=== PATIENT | female | born 1985 | race Two or more races ===

== ENCOUNTER 2023-10-26 08:07 | Emergency (ER) | payer SELFPAY ==
[2023-10-26 08:13] VITALS: BP 107/47; PULSE 71; RESP 18; TEMP 37.1; O2SAT 100; BMI 37.8
--- NOTE | 2023-10-26 08:31 | US_ITS ---
The [address] [address] Patient Name: MARY GARDNER MRN: [id number] date: 1985 Sex: F Assigned Patient Location: ER Current Patient Location: ER Accession/Order Number: [id number] Exam Date: 10/26/2023 09:00 Report Date: 10/26/2023 09:49 At the request of: THANIA PHAN Procedure: US OB transvaginal EXAMINATION: US OB transvaginal HISTORY: Positive test with vaginal bleeding COMPARISON: No relevant comparison available. FINDINGS: GESTATIONAL SAC: Markedly irregular fluid collection/gestational sac within endometrial cavity. YOLK SAC: Absent POLE: Soft tissue structure within the endometrial fluid collection, 2.9 x 2.7 x 1.8 cm; possibly a pole. CARDIAC: Absent UTERUS: Normal size and appearance. OVARIES: Right: Corpus lutein cyst. Left: Normal. CERVIX: 3.8 cm in length and closed. CUL-DE-SAC: Normal. OTHER: None. AGE BY LMP: 19 weeks 6 days TERENCE BY LMP: 05/24/2024 AGE BY US CRL: 8 weeks 0 days TERENCE BY US CRL: 06/06/2024 US/US OB transvaginal IMPRESSION: 1. Markedly irregular fluid collection within endometrial cavity suspected represent a ruptured gestational sac. 2. Soft tissue structure within endometrial cavity; pole versus abnormal soft tissue. No heartbeat. 3. Findings consistent with impending . Electronically authenticated by: EVANGELIST MORALES Date: 10/26/2023 09:49
[2023-10-26 08:38] LABS: Bilirubin Urine NEGATIVE (NEGATIVE); Blood Urine MODERATE (NEGATIVE); Clarity Urine CLEAR (CLEAR); Color Urine YELLOW (YELLOW); Glucose Urine UA NEGATIVE (NEGATIVE); Ketones Urine NEGATIVE (NEGATIVE); Leukocyte Esterase Urine NEGATIVE (NEGATIVE); Nitrite Urine NEGATIVE (NEGATIVE); Protein Urine 30 mg/dL (NEG/TRACE); Urobilinogen Urine 0.2 EU/dL (0.2-1.0); pH Urine 6.5 (5.0-9.0)
--- NOTE | 2023-10-26 08:39 | ED_ITS ---
HPI - Abdominal Pain General Chief Complaint: Abdominal Pain Stated Complaint: ABDOMINAL PAIN Time Seen by Provider: 10/26/23 08:30 Source: patient and family History of Present Illness HPI narrative: This patient is here for evaluation of vaginal bleeding. She took a home test within the last week and it was positive. Her last menstrual period was the end of July. She has 6 children at home, her last delivery was 1 year ago. She has not seen a customer counter representative. In her pre this she has developed gestational diabetes but she has no other amount and is not on any medicines at the time. She has not had nausea vomiting or diarrhea. She has no urinary symptoms such as frequency urgency or dysuria. Related Data Home Medications Medication Instructions Recorded Confirmed No Known Home Medications 10/26/23 10/26/23 Allergies Allergy/AdvReac Type Severity Reaction Status Date / Time No Known Drug Allergies Allergy Verified 10/26/23 08:15 PFS PFS Social History Smoking status: Never smoker Exam Narrative Exam Narrative: Very pleasant 38-year-old no distress. Her vital signs are stable. We communicate very effectively, she understands some [place] and her daughter is an excellent flame burner. There was no communication problems. Here in the ER she did not pass any more clots. Her quantitative hCG is elevated as noted in her lab here. She was taken and had a transvaginal ultrasound. The results do not show any indication of an ectopic or tubal . There is no heartbeat detectable and there is the remnants of what appeared to be an earlier inside her uterus. She is Rh+ based on testing here. Constitutional Vital Signs, click to edit/add: Last Vital Signs Temp 98.7 F 10/26/23 08:13 Pulse 64 10/26/23 09:38 Resp 18 10/26/23 09:38 BP 118/75 10/26/23 09:38 Pulse Ox 98 10/26/23 09:38 Course Vital Signs Vital signs: Vital Signs Temperature 98.7 F 10/26/23 08:13 Pulse Rate 71 10/26/23 08:13 Respiratory Rate 18 10/26/23 08:13 Blood Pressure 107/47 L 10/26/23 08:13 Pulse Oximetry 100 10/26/23 08:13 Temperature 98.7 F 10/26/23 08:13 Pulse Rate 64 10/26/23 09:38 Respiratory Rate 18 10/26/23 09:38 Blood Pressure 118/75 10/26/23 09:38 Pulse Oximetry 98 10/26/23 09:38 MDM - Abdominal Pain MDM Narrative Medical decision making narrative: The findings today are consistent with a incomplete miscarriage. This was discussed with the patient. She is Rh+ so RhoGAM does not need to be given. It was explained to her if she has heavier bleeding or passing a large amount of clots she should return to consider D&C procedure. The daughter was able to explain this to the patient very comprehensively. Lab Data Labs: Lab Results 10/26/23 10/26/23 Range/Units 08:20 10:15 WBC 7.5 (4.0-11.0) 10^3/uL RBC 3.86 L (4.20-5.40) 10^6/uL Hgb 11.1 L (12.0-16.0) g/dL Hct 34.1 L (36.0-48.0) % MCV 88.3 (81.0-99.0) fL MCH 28.8 (26.7-34.0) pg MCHC 32.6 (29.9-35.2) g/dL RDW 15.7 H (11.0-15.0) % Plt Count 285 (150-450) 10^3/uL MPV 10.5 (9.5-13.5) fL Neut % (Auto) 65.9 (43.0-75.0) % Lymph % (Auto) 25.1 (20.5-60.0) % [place] % (Auto) 7.4 (1.7-12.0) % Eos % (Auto) 1.2 (0.9-7.0) % Baso % (Auto) 0.1 L (0.2-2.0) % Neut # (Auto) 4.9 (1.4-6.5) 10^3/uL Lymph # (Auto) 1.9 (1.2-3.8) 10^3/uL [place] # (Auto) 0.6 (0.3-0.8) 10^3/uL Eos # (Auto) 0.1 (0.0-0.7) 10^3/uL Baso # (Auto) 0.0 (0.0-0.1) 10^3/uL Abs Immat Gran (auto) 0.02 (0.00-0.03) 10^3/uL Imm/Tot Granulo (auto) 0.3 (0.0-0.5) % HCG, Quant [id number] mIU/mL Urine Color Yellow (YELLOW) Urine Clarity Clear (CLEAR) Urine pH 6.5 (5.0-9.0) Ur Specific [place] 1.020 (1.005-1.025) Urine Protein 30 A (NEG/TRACE) mg/dL Urine Glucose (UA) Negative (NEGATIVE) mg/dL Urine Ketones Negative (NEGATIVE) mg/dL Urine Occult Blood Moderate A (NEGATIVE) Urine Nitrite Negative (NEGATIVE) Urine Bilirubin Negative (NEGATIVE) Urine Urobilinogen 0.2 (0.2-1.0) EU/dL Ur Leukocyte Esterase Negative (NEGATIVE) Urine RBC 5-10 A (0-2) #/HPF Urine WBC None seen (NONE SEEN) #/HPF Ur Squamous Epith Cells Few A (NONE/RARE) #/LPF Urine Crystals None seen (None Seen) #/HPF Urine Bacteria Small A (NONE SEEN) #/HPF Urine Casts None seen (NONE SEEN) #/LPF Urine Mucus Trace A (NONE SEEN) Ur Culture Indicated? Yes Blood Type O Positive Discharge Plan Discharge Chief Complaint: Abdominal Pain Clinical Impression: Incomplete Patient Disposition: Home, Self-Care Time of Disposition Decision: 11:36 Prescriptions / Home Meds: No Action No Known Home Medications Additional Instructions: Follow-up with Dr. Gilmore her customer counter representative, return to the ER if you have heavy bleeding as discussed Referrals: Physician,Non-Staff, MD [Primary Care Provider] - 1 week Stand Alone Forms: Portal Instructions
[2023-10-26 08:43] LABS: Urine Microscopic Indicated YES
[2023-10-26 08:51] LABS: Bacteria Urine SMALL #/HPF (NONE SEEN); Mucus Urine TRACE (NONE SEEN); WBC Urine NONE SEEN #/HPF (NONE SEEN)
[2023-10-26 08:52] LABS: Cast Seen? NONE SEEN #/LPF (NONE SEEN); Crystals Seen? None Seen #/HPF (None Seen); Squamous Epithelial Cell Urine FEW #/LPF (NONE/RARE); Urine Culture Indicated YES
[2023-10-26 09:26] LABS: HCG Quantitative 165144 mIU/mL
[2023-10-26 09:38] VITALS: BP 118/75; PULSE 64; RESP 18; O2SAT 98
[2023-10-26 10:33] LABS: Basophils Percent Auto 0.1 % (0.2-2.0); Eosinophils Absolute Auto 0.1 10^3/uL (0.0-0.7); Eosinophils Percent Auto 1.2 % (0.9-7.0); Hematocrit 34.1 % (36.0-48.0); Hemoglobin 11.1 g/dL (12.0-16.0); Immature Granulocytes Abs Auto 0.02 10^3/uL (0.00-0.03); Immature Granulocytes Pct Auto 0.3 % (0.0-0.5); Lymphocytes Absolute Auto 1.9 10^3/uL (1.2-3.8); Lymphocytes Percent Auto 25.1 % (20.5-60.0); Mean Corpuscular HGB Conc 32.6 g/dL (29.9-35.2); Mean Corpuscular Hemoglobin 28.8 pg (26.7-34.0); Mean Corpuscular Volume 88.3 fL (81.0-99.0); Mean Platelet Volume 10.5 fL (9.5-13.5); Monocytes Absolute Auto 0.6 10^3/uL (0.3-0.8); Monocytes Percent Auto 7.4 % (1.7-12.0); Neutrophils Absolute Auto 4.9 10^3/uL (1.4-6.5); Neutrophils Percent Auto 65.9 % (43.0-75.0); Platelet Count 285 10^3/uL (150-450); Red Blood Count 3.86 10^6/uL (4.20-5.40); Red Cell Distribution Width 15.7 % (11.0-15.0); White Blood Count 7.5 10^3/uL (4.0-11.0)
== END 2023-10-26 12:00 | disposition home or self-care (01) ==
PROVIDERS: Emergency Provider Emergency Medicine Emergency Medical Services
DX: O03.4 Incomplete spontaneous abortion without complication (principal)
CPT/HCPCS: 36415; 76817; 80053; 81001; 83690; 84484; 84702; 84703; 85025; 86900; 86901; 87086; 99284

== ENCOUNTER 2023-10-28 08:15 | Day surgery (SDC) | payer SELFPAY ==
[2023-10-28] VITALS (16 sets, daily range): BP systolic 92–159; BP diastolic 49–90; PULSE 58–84; RESP 10–80; TEMP 36.2–37; O2SAT 99–100; BMI 37.4
--- NOTE | 2023-10-28 08:25 | US_ITS ---
The [address] [address] Patient Name: MARY GARDNER MRN: [id number] date: 1985 Sex: F Assigned Patient Location: ER Current Patient Location: ER Accession/Order Number: [id number] Exam Date: 10/28/2023 08:30 Report Date: 10/28/2023 09:48 At the request of: LILIBETH BARRY Procedure: US OB transvaginal EXAMINATION: US OB transvaginal HISTORY: , abd pain COMPARISON: 10/26/2023 FINDINGS: The uterus is stable in size and contour, anteverted. Heterogeneous fluid, hypoechoic and hyperechogenicity identified within the endometrial cavity which is distended up to 5.2 cm. Area of rounded hypoechogenicity measuring 3.2 x 2.4 x 2.5 cm. No pole or yolk sac is observed. The right ovary measures 3.6 x 3.6 x 2.6 cm. Normal color flow. The left ovary is not visualized No free fluid US/US OB transvaginal IMPRESSION: Stable thickened heterogeneous appearance of the endometrial cavity. The differential diagnosis would include products of conception and/or hemorrhage. Correlation with quantitative beta hCG is recommended Electronically authenticated by: RANDI DANIELS Date: 10/28/2023 09:48
--- NOTE | 2023-10-28 08:39 | ED.PREGNANC1 ---
HPI - General Chief complaint: Abdominal Pain Stated complaint: ABDOMINAL PAIN Time Seen by Provider: 10/28/23 08:24 Source: patient Mode of arrival: walk-in History of Present Illness HPI Narrative: Patient returns complaining of continued lower abdominal and pelvic pain. She also has some vaginal spotting. She did not take anything for the pain. The patient had a home test last week and then developed abdominal pain and spotting. She came to the ED two days ago. Quant was elevated at 165,144. US showed non viable fetus with gestational age different than estimated age based on LMP. Patient discharged home with recommendation to see her OB - Dr Gilmore - and to return if her symptoms continued or worsened. She is A1 - with this likely to be her second miscarriage. Related Data Home Medications Medication Instructions Recorded Confirmed No Known Home Medications 10/26/23 10/26/23 Previous Rx's Medication Instructions Recorded doxycycline hyclate 100 mg capsule 100 mg PO BID 7 days #14 caps 10/28/23 ibuprofen 800 mg tablet 800 mg PO Q8H PRN pain 14 days #40 10/28/23 tabs Allergies Allergy/AdvReac Type Severity Reaction Status Date / Time No Known Drug Allergies Allergy Verified 10/26/23 08:15 PFSH PFS Social History Smoking status: Never smoker Exam Narrative Exam Narrative: Nurses notes and vital signs reviewed and patient is not hypoxic. afebrile General: Well-appearing and in no apparent distress. Skin: Warm, dry, no pallor noted. No rash. Eye: Pupils are equal, round and EOMI. No scleral icterus. Ears, Nose, Mouth, and Throat: Oral mucosa is moist Cardiovascular: Regular Rate and Rhythm without murmur, gallop or rub. Respiratory: No accessory muscle use or respiratory distress. Lungs are clear to auscultation, no wheezing, rales or rhonchi Back: No midline thoracic or lumbar vertebral tenderness. No CVA tenderness. Some bilateral paraspinal soft tissue tenderness at lumbar region. Musculoskeletal: normal ROM, no calf or popliteal tenderness, no lower extremity edema/swelling GI: Abdomen is soft, non-distended. Normal bowel sounds. Suprapubic and adnexal tenderness to palpation. No rebound, guarding, or rigidity noted. Neurological: A&O x4. No cranial nerve dysfunction observed. No truncal ataxia. Moves all extremities. Sensation intact. Psychiatric: Cooperative and interactive. Normal mood and affect. Constitutional Vital Signs, click to edit/add: Last Vital Signs Temp 97.1 F L 10/28/23 11:37 Pulse 79 10/28/23 12:37 Resp 80 H 10/28/23 12:37 BP 99/78 10/28/23 12:37 Pulse Ox 99 10/28/23 12:37 O2 Del Method Room Air 10/28/23 12:37 Course Vital Signs Vital signs: Vital Signs Temperature 98.6 F 10/28/23 08:20 Pulse Rate 74 10/28/23 08:20 Respiratory Rate 18 10/28/23 08:20 Blood Pressure 159/90 H 10/28/23 08:20 Pulse Oximetry 100 10/28/23 08:20 Temperature 97.1 F L 10/28/23 11:37 Pulse Rate 79 10/28/23 12:37 Respiratory Rate 80 H 10/28/23 12:37 Blood Pressure 99/78 10/28/23 12:37 Pulse Oximetry 99 10/28/23 12:37 Oxygen Delivery Method Room Air 10/28/23 12:37 MDM - OB/Uterine Contractions MDM Narrative Medical decision making narrative: Patternmaker Helper used to talk with patient and during my exam, as well as during explanation of evaluation, workup and plan. Urine, blood and US obtained. Call placed to Dr Gilmore to discuss. He said that he is very familiar with this patient and aware of her condition. He will take the patient to the OR for D&C. Wants to be notified of US and lab results. quant = [phone]. CBC and CMP unremarkable. UA with blood. US reveals RPOC. Dr Gilmore notified. Patient will go to OR for D&C. Lab Data Attestation: I reviewed the patient's lab results. Labs: Lab Results 10/28/23 10/28/23 Range/Units 08:34 08:45 WBC 8.7 (4.0-11.0) 10^3/uL RBC 3.98 L (4.20-5.40) 10^6/uL Hgb 11.3 L (12.0-16.0) g/dL Hct 35.3 L (36.0-48.0) % MCV 88.7 (81.0-99.0) fL MCH 28.4 (26.7-34.0) pg MCHC 32.0 (29.9-35.2) g/dL RDW 15.6 H (11.0-15.0) % Plt Count 264 (150-450) 10^3/uL MPV 10.4 (9.5-13.5) fL Neut % (Auto) 63.4 (43.0-75.0) % Lymph % (Auto) 27.3 (20.5-60.0) % Avery % (Auto) 7.4 (1.7-12.0) % Eos % (Auto) 1.5 (0.9-7.0) % Baso % (Auto) 0.2 (0.2-2.0) % Neut # (Auto) 5.5 (1.4-6.5) 10^3/uL Lymph # (Auto) 2.4 (1.2-3.8) 10^3/uL Avery # (Auto) 0.7 (0.3-0.8) 10^3/uL Eos # (Auto) 0.1 (0.0-0.7) 10^3/uL Baso # (Auto) 0.0 (0.0-0.1) 10^3/uL Abs Immat Gran (auto) 0.02 (0.00-0.03) 10^3/uL Imm/Tot Granulo (auto) 0.2 (0.0-0.5) % PT 10.2 (9.0-11.6) sec INR 0.96 APTT 29.8 (22.3-36.2) sec Sodium 135 L (136-145) mmol/L Potassium 3.8 (3.5-5.1) mmol/L Chloride 103 (98-107) mmol/L Carbon Dioxide 23.7 (21.0-32.0) mmol/L Anion Gap 12.1 BUN 8.0 (7.0-18.0) mg/dL Creatinine 0.66 (0.55-1.02) mg/dL Est GFR ( Amer) >60 (>=60) Est GFR (Non-Af Amer) >60 (>=60) BUN/Creatinine Ratio 12.1 Glucose 100 (74-106) mg/dL Calcium 8.9 (8.5-10.1) mg/dL Total Bilirubin 0.4 (0.2-1.0) mg/dL AST 14 L (15-37) U/L ALT 16 (14-59) U/L Alkaline Phosphatase 80 (46-116) U/L Total Protein 7.9 (6.4-8.2) g/dL Albumin 3.1 L (3.4-5.0) g/dL Globulin 4.8 g/dL Albumin/Globulin Ratio 0.6 HCG, Quant [id number] mIU/mL Urine Color Yellow (YELLOW) Urine Clarity Clear (CLEAR) Urine pH 6.0 (5.0-9.0) Ur Specific Troy 1.025 (1.005-1.025) Urine Protein 30 A (NEG/TRACE) mg/dL Urine Glucose (UA) Negative (NEGATIVE) mg/dL Urine Ketones Negative (NEGATIVE) mg/dL Urine Occult Blood Large A (NEGATIVE) Urine Nitrite Negative (NEGATIVE) Urine Bilirubin Negative (NEGATIVE) Urine Urobilinogen 1.0 (0.2-1.0) EU/dL Ur Leukocyte Esterase Negative (NEGATIVE) Urine RBC 5-10 A (0-2) #/HPF Urine WBC 0-2 A (NONE SEEN) #/HPF Ur Squamous Epith Cells Few A (NONE/RARE) #/LPF Urine Crystals None seen (None Seen) #/HPF Urine Bacteria Trace A (NONE SEEN) #/HPF Urine Casts None seen (NONE SEEN) #/LPF Urine Mucus Trace A (NONE SEEN) Ur Culture Indicated? No Imaging Data pelvic US: Radiologist's impression: ITS Impressions Transvaginal US 10/28/23 08:25 IMPRESSION: Stable thickened heterogeneous appearance of the endometrial cavity. The differential diagnosis would include products of conception and/or hemorrhage. Correlation with quantitative beta hCG is recommended Electronically authenticated by: RANDI DANIELS Date: 10/28/2023 09:48 Discharge Plan Discharge Chief Complaint: Abdominal Pain Clinical Impression: Retained products of conception, Incomplete Patient Disposition: Home, Self-Care Time of Disposition Decision: 09:59 Condition: Good Discharge Date/Time: 10/28/23 13:13
--- OUTSIDE RECORDS SUMMARY | 2023-10-28 08:39 | XMS_ITS | CCD ---
Author Name Unknown Address [address] [facility] [address] [place] [address] Organization [facility] Care Team Providers Care Enterprise Project Manager Name Role Phone Unavailable Primary Care Provider JANAK Hatfield Primary Care Unavailable MARLEN AVILA Attending Unavailable NONE, XXXX Primary Care Physician UnavailYonathan Cavanaugh Attending Unavailable Hermelindo Monge Attending Unavailable Medications Current Medications Medication Drug Class(es) Dates Sig (Normalized) Sig (Original) acetaminophen 325 mg oral tablet (1 source) take 2 tablets by mouth every six hours as needed for pain acetaminophen (TYLENOL) 325 MG tablet Take 650 mg by mouth every 6 hours as needed for Pain 0 Active ibuprofen 600 mg oral tablet (3 sources) Nonsteroidal Anti-inflammatory Drug Start: 07-17-2021 take 1 tablet by mouth every six hours ibuprofen 600 mg Tab 600 mg = 1 tab(s), Oral, q6hr, # 15 tab(s), Refills(s) 0, Pharmacy: [id number], 154.9, cm, 07/16/21 19:31:00 EST, Height/Length Dosing, 109, kg, 07/16/21 19:31:00 EST, Weight Dosing Start Date: 07/17/21 Status: Ordered Start: 05-12-2016 take 1 tablet by gil th every eight hours as needed for pain ibuprofen (ADVIL;MOTRIN) 800 MG tablet Take 1 tablet by mouth every 8 hours as needed for Pain or Fever 50 tablet 2 05/12/2016 Active Multivitamins (2 sources) Start: 01-21-2021 take 1 tablet by mouth once daily Multivitamins 1 tab(s), Oral, Daily, Refill(s) 0 Start Date: 01/21/21 Status: Ordered Completed/Discontinued Medications Medication Drug Class(es) Dates Sig (Normalized) Sig (Original) calcium carbonate 1250 mg / cholecalciferol 200 unt oral tablet (1 source) Vitamin D Start: 08-29-2016 End: 05-05-2020 take 1 tablet by mouth once daily Calcium Carbonate-Vitamin D (OYSTER SHELL CALCIUM/D) 500-200 MG-UNIT TABS Take 1 tablet by mouth daily 30 tablet 5 08/29/2016 05/05/2020 Discontinued (LIST CLEANUP) 1 ml dexamethasone phosphate 10 mg/ml injection (1 source) Corticosteroid Start: 05-05-2020 End: 05-05-2020 dexamethasone (PF) (DECADRON) injection 10 mg 1 ml diphenhydrAMINE hydrochloride 50 mg/ml cartridge (1 source) Histamine-1 Receptor Antagonist Start: 05-05-2020 End: 05-05-2020 diphenhydrAMINE (BENADRYL) injection 12.5 mg ferrous sulfate 325 mg oral tablet (1 source) Start: 05-12-2016 End: 05-05-2020 take 1 tablet by mouth twice daily at mealtime ferrous sulfate 325 (65 FE) MG tablet Take 1 tablet by mouth 2 times daily (with meals) 60 tablet 3 05/12/2016 05/05/2020 Discontinued (LIST CLEANUP) 1 ml ketorolac tromethamine 30 mg/ml cartridge (1 source) Nonsteroidal Anti-inflammatory Drug, Cyclooxygenase Inhibitor Start: 05-05-2020 End: 05-05-2020 ketorolac (TORADOL) injection 30 mg 2 ml metoclopramide 5 mg/ml prefilled syringe (1 source) Dopamine-2 Receptor Antagonist Start: 05-05-2020 End: 05-05-2020 metoclopramide (REGLAN) injection 10 mg naproxen sodium 275 mg oral tablet (1 source) Nonsteroidal Anti-inflammatory Drug Start: 08-29-2016 End: 05-05-2020 take 1 tablet by mouth twice daily at mealtime naproxen sodium (ANAPROX) 275 MG tablet Indications: Pelvic congestion Take 1 tablet by mouth 2 times daily (with meals) 60 tablet 3 08/29/2016 05/05/2020 Discontinued (LIST CLEANUP) Problems Active Problems Problem Classification Problem Date Documented Date Episodic/Chronic Abdominal pain (1 source) Abdominal pain; Translations: [Unspecified abdominal pain] Onset: 10-22-2023 Episodic Diabetes or abnormal glucose tolerance complicating ; childbirth; or the puerperium (7 sources) Gestational diabetes mellitus; Translations: [Gestational diabetes] Onset: 02-03-2014 Resolved: 09-08-2014 09-08-2014 Episodic Headache; including migraine (1 source) Headache; Translations: [Nonintractable headache, unspecified chronicity pattern, unspecified headache type] Episodic Influenza (1 source) Influenza; Translations: [Influenza due to unidentified influenza virus with other respiratory manifestations] Onset: 09-29-2023 Episodic Malaise and fatigue (1 source) Asthenia; Translations: [General weakness] Episodic Other complications of ; puerperium affecting management of mother (2 sources) growth restriction 07-09-2021 Episodic Other complications of (2 sources) High risk 03-03-2021 Episodic Other complications of (1 source) Missed miscarriage; Translations: [Missed ] Onset: 10-22-2023 Episodic Other nutritional; endocrine; and metabolic disorders (3 sources) Body mass index 30+ - obesity; Translations: [Obesity (BMI 35.0-39.9 without comorbidity)] Onset: 02-03-2014 02-03-2014 Chronic Unclassified (1 source) Language spoken - finding; Translations: [Mauritanian speaking patient] Onset: 05-26-2014 05-26-2014 Unclassified (2 sources) Age mother conceived over 35 07-09-2021 Unclassified (2 sources) Language barrier (observable entity) 11-01-2013 Unclassified (2 sources) Sterilization requested 07-27-2020 Past or Other Problems Problem Classification Problem Date Documented Da te Episodic/Chronic Menstrual disorders (1 source) Amenorrhea; Translations: [Amenorrhea] Onset: 12-05-2013 Resolved: 12-31-2013 12-31-2013 Chronic Other complications of ; puerperium affecting management of mother (1 source) Labor problem; Translations: [Labor abnormal] Onset: 05-09-2016 Resolved: 06-27-2016 06-27-2016 Episodic Other and delivery including normal (2 sources) Delivery normal; Translations: [Normal labor] Onset: 07-20-2014 Resolved: 07-20-2014 05-10-2016 Episodic Unclassified (8 sources) Onset: 10-13-2013 Resolved: 07-17-2021 07-06-2020 Results Test Name Value Interpretation Reference Range Facility Chlam/GC/Trich,NAAon 03-06-2 024 C. trachomatis rRNA VIKY+probe Ql (Unsp spec) Negative Invalid Interpretation Code Negative [facility] Comment on above: Performed By: #### 1 [id number] ####[facility] [address] [place] [address] N. gonorrhoeae rRNA VIKY+probe Ql (Unsp spec) Negative Invalid Interpretation Code Negative [facility] Comment on above: Performed By: #### 1 [id number] ####[address] [address] T. vaginalis rRNA VIKY+probe Ql (Unsp spec) Negative Invalid Interpretation Code Negative [facility] Comment on above: Result Comment: Perf ormed at: =G [facility] [address] [place] [id number] MD Juanpablo Streeter Performed By: #### 1 [id number] ####[place] [id number] ABO/Rhon 10-22-2023 ABO/Rh Positive Invalid Interpretation Code [facility] Comment on above: Performed By: #### 2 [id number] ####[address] [address] Amylaseon 10-22-2023 Amylase [Catalytic activity/Vol] 54 U/L Normal 25-157 [facility] Comment on above: Performed By: #### 2 074527, 0988334, 8738092, 56940500, 2406675, 56984591, 0066298, 8561937, 6993547 ####[facility] [address] [place] [address] B hCG Qualon 10-22-2023 Beta HCG ( test) Ql Positive Normal [facility] Comment on above: Performed By: #### 2 370203, 7010961, 8948249, 48311419, 2351497, 72640860, 7608171, 5521076, 8781359 ####[place] [address] [place] [address] BLOOD BANKOrdered By: Janie Carter on 10-22-2023 ABO/Rh Interp Positive Invalid Interpretation Code [facility] BB Subsection BMPon 10-22-2023 Anion gap [Moles/Vol] 12 mmol/L Normal 6-16 [facility] Comment on above: Performed By: #### 2 767209, 0481018, 1701665, 77678491, 3950113, 17930600, 1783759, 0254810, 2404052 ####[facility] [address] [place] [address] Calcium [Mass/Vol] 9.2 mg/dL Normal 8.9-11.1 [facility] Comment on above: Performed By: #### 2 587657, 4545645, 8460114, 19413160, 9957949, 06264810, 0658854, 0232905, 9531167 ####[facility] [address] [place] [address] Chloride [Moles/Vol] 106 mmol/L Normal 101-111 [facility] Comment on above: Performed By: #### 2 503690, 4926130, 8775714, 98541986, 1686360, 80957882, 4545841, 8440334, 1005150 ####[facility] [address] [place] [address] CO2 [Moles/Vol] 22 mmol/L Normal 21-31 [facility] Comment on above: Performed By: #### 2 147873, 5496129, 3554416, 48811546, 3339967, 43124561, 3538362, 9629607, 3907702 ####[facility] [address] [place] [address] Creatinine [Mass/Vol] 0.6 mg/dL Normal 0.5-1.3 [facility] Comment on above: Performed By: #### 2 379517, 2016057, 9650134, 42484995, 1889341, 08795877, 5214290, 5981677, 0272851 ####[facility] [address] [place] [address] Glucose [Mass/Vol] 93 mg/dL Normal 55-199 [facility] Comment on above: Performed By: #### 2 279447, 9419980, 7259915, 75493790, 1464450, 77116486, 0316444, 0119994, 0676390 ####[facility] [address] [place] [address] Potassium [Moles/Vol] 4.3 mmol/L Normal 3.5-5.3 [facility] Comment on above: Performed By: #### 2 385089, 8793431, 3785929, 01306161, 0976352, 64660538, 2233382, 8827981, 9933380 ####[facility] [address] [place] [address] Sodium [Moles/Vol] 136 mmol/L Normal 135-145 [facility] Comment on above: Performed By: #### 2 854214, 1333002, 0400606, 43200308, 7898392, 19593434, 2375698, 9141933, 4833108 ####[facility] [address] [place] [address] Urea nitrogen [Mass/Vol] 8 mg/dL Normal 5-21 [facility] Comment on above: Performed By: #### 2 480363, 3100733, 6577113, 42185913, 8725579, 68277615, 6223425, 8718954, 2436775 ####[facility] [address] [place] [address] Urea nitrogen/Creatinine [Mass ratio] 13 No Units Normal 10-20 [facility] Comment on above: Performed By: #### 2 359387, 4591239, 0456661, 61769696, 5758635, 82049237, 0383318, 7409349, 3616702 ####[facility] [address] [place] [address] BhCG Quanton 10-22-2023 [place] [address] m[IU]/mL High 1-3 [facility] Comment on above: Result Comment: 'F N ON < 1 - 3' ' 0.2 - 1 WEEK = 5 TO 50' ' 1 - 2 WEEKS = 50 - 500' ' 2 - 3 WEEKS = 100 - 5000' ' 3 - 4 WEEKS = 500 - 98111' ' 4 - 5 WEEKS = 1000 - 44640' ' 5 - 6 WEEKS = 21143 - 442734' ' 6 - 8 WEEKS = 74132 - 388485' ' 8 - 12 WEEKS = 32702 - 642835' Performed By: #### 2 247007, 8672935, 3664343, 61074778, 9482820, 99403715, 2300828, 8265321, 8437243 ####[facility] [address] [place] [address] CBC w/ Auto Diffon 4 Basophils/100 WBC (Bld) 0.5 % Normal 0.0-2.0 [facility] Comment on above: Performed By: #### 2 317748, 8619920, 9521959, 78139400, 2037133, 45121283, 3667904, 5989933, 3706939 ####[facility] [address] [place] [address] Basophils/Leukocytes Auto (Bld) [Pure # fraction] 0.0 E9/L Normal 0.0-0.2 [facility] Comment on above: Performed By: #### 2 871417, 0479008, 0944778, 87059549, 3259581, 03728536, 8198936, 2970829, 3756413 ####[facility] [address] [place] [address] Eosinophils (Bld) [#/Vol] 0.1 E9/L Normal 0.0-0.5 [facility] Comment on above: Performed By: #### 2 617699, 4157746, 5519389, 28169636, 5103038, 67511323, 5651503, 4966874, 3289771 ####[facility] [address] [place] [address] Eosinophils/100 WBC (Bld) 1.2 % Normal 0.0-8.0 [facility] Comment on above: Performed By: #### 2 789109, 4977245, 2824060, 33203040, 1736310, 54682438, 1999405, 7260074, 5411134 ####[address] [address] Erythrocyte distribution width (RBC) [Ratio] 16.4 % High 10.9-14.2 [facility] Comment on above: Performed By: #### 2 801997, 1549403, 9996912, 39742370, 4218927, 09663918, 9847190, 3828792, 4783737 ####[address] [address] Hematocrit (Bld) [Volume fraction] 33.6 % Low 34.0-46.0 [facility] Comment on above: Performed By: #### 2 300016, 5531351, 3072376, 57070752, 8498187, 54043580, 4635775, 9123393, 0704976 ####[address] [address] Hemoglobin (Bld) [Mass/Vol] 11.1 g/dL Low 12.0-16.0 [facility] Comment on above: Performed By: #### 2 260943, 4847717, 2002918, 90014815, 7629317, 16331200, 0437399, 5893977, 5979025 ####[address] [address] Lymphocytes (Bld) [#/Vol] 1.8 E9/L Normal 1.0-4.0 [facility] Comment on above: Performed By: #### 2 769927, 7993670, 5754134, 26558438, 3491076, 67007342, 4943984, 0252439, 4554177 ####[address] [address] Lymphocytes/100 WBC (Bld) 26.3 % Normal 14.0-50.0 [facility] Comment on above: Performed By: #### 2 889007, 2796470, 6009473, 72869101, 0528524, 51209593, 5052614, 3939356, 1065115 ####[address] [address] MCH (RBC) [Entitic mass] 28.3 pg Normal 27.0-34.0 [facility] Comment on above: Performed By: #### 2 124102, 1799951, 8825193, 15095343, 9341737, 81117913, 6462644, 5209984, 4677049 ####[address] [address] MCHC (RBC) [Mass/Vol] 33.1 g/dL Normal 31.4-36.0 [facility] Comment on above: Performed By: #### 2 932332, 6473349, 2020061, 87677788, 9135029, 78840830, 7064047, 9444140, 3689153 ####[address] [address] MCV (RBC) [Entitic vol] 85.7 fL Normal 80.0-100.0 [facility] Comment on above: Performed By: #### 2 568694, 4242095, 0131244, 95341565, 9737775, 48969299, 8314339, 4258111, 4261162 ####[address] [address] Monocytes (Bld) [#/Vol] 0.5 E9/L Normal 0.2-1.0 [facility] Comment on above: Performed By: #### 2 013885, 9638199, 9697021, 48302177, 5369429, 52154434, 6078328, 9093539, 7218803 ####[address] [address] Neutrophils (Bld) [#/Vol] 4.4 E9/L Normal 2.0-7.5 [facility] Comment on above: Performed By: #### 2 358177, 5001018, 9563797, 19655723, 5638401, 08560183, 8614712, 3450362, 3417645 ####[place] [address] [place] [address] Neutrophils/100 WBC (Bld) 64.6 % Normal 36.0-75.0 [facility] Comment on above: Performed By: #### 2 811242, 6697733, 4308680, 17278586, 4038665, 52952055, 9488618, 1819693, 8445032 ####[address] [address] Platelet mean volume (Bld) [Entitic vol] 8.6 fL Normal 6.4-10.8 [facility] Comment on above: Performed By: #### 2 759696, 3831721, 3224093, 59610605, 6176928, 73964137, 2894263, 6716492, 2625304 ####[address] [address] Platelets (Bld) [#/Vol] 313.0 E9/L Normal 150.0-500.0 [facility] Comment on above: Performed By: #### 2 058599, 6376217, 9602233, 79616363, 0051593, 41593400, 3126225, 4815831, 7281056 ####[address] [address] RBC (Bld) [#/Vol] 3.9 E12/L Low 4.3-5.9 [facility] Comment on above: Performed By: #### 2 723786, 9577471, 7463616, 56978030, 6067908, 21680514, 3403686, 7477755, 1113161 ####[place] [address] [place] [address] WBC corrected for nucl RBC Auto (Bld) [#/Vol] 6.8 E9/L Normal 4.0-11.0 [facility] Comment on above: Performed By: #### 2 386971, 5846903, 4933006, 24217825, 8942943, 82947445, 4107189, 9055494, 4437959 ####[facility] [address] [place] [address] CHEMISTRYOrdered By: SYSTEM SYSTEM on 10-22-2023 Albumin [Mass/Vol] 3.6 g/dL Normal 3.3 - 5.0 gm/dL Remisol Chem Albumin/Globulin [Mass ratio] 1.0 {ratio} Low 1.1 - 2.2 [facility] ALP [Catalytic activity/Vol] 70 [iU]/d Normal 21 - 98 Int._Unit/L [facility] Chem ALT No additional P-5'-P [Catalytic activity/Vol] 8 [iU]/d Normal 6 - 46 Int._Unit/L [facility] Amylase [Catalytic activity/Vol] 54 U/L Normal 25 - 157 unit/L [facility] Anion gap [Moles/Vol] 12 mmol/L Normal 6 - 16 mEq/L R emisol Chem AST [Catalytic activity/Vol] 10 [iU]/d Normal 5 - 43 Int._Unit/L [facility] Bilirubin [Mass/Vol] 0.3 mg/dL Normal 0.0 - 1 .1 mg/dL [facility] Bilirubin.direct [Mass/Vol] 0.0 mg/dL Normal 0.0 - 0.4 mg/dL [facility] Bilirubin.indirect [Mass or moles/Vol] 0.3 mg/dL Normal 0.1 - 0.9 mg/dL [facility] Calcium [Mass/Vol] 9.2 mg/dL Normal 8.9 - 11. 1 mg/dL [facility] Chloride [Moles/Vol] 106 mmol/L Normal 101 - 1 11 mmol/L [facility] CO2 [Moles/Vol] 22 mmol/L Normal 21 - 31 mmol/L [facility] Creatinine [Mass/Vol] 0.6 mg/dL Normal 0.5 - 1.3 mg/dL [facility] CRP [Mass/Vol] 1.7 mg/dL Normal <=1.9mg/dL Rem[facility] Ch em eGFR 116 mL/min/1.73 m2 Normal >=59mL/mi n/1. 73 m2 [facility] Globulin (S) [Mass/Vol] 3.5 g/dL Normal 1.4 - 4.0 gm/dL [facility] Glucose [Mass/Vol] 93 mg/dL Normal 55 - 199 mg/dL [place] [address] m[IU]/mL High 1 - 3 mIU/mL [facility] Comment on above: Result Comment: 'F N ON < 1 - 3' ' 0.2 - 1 WEEK = 5 TO 50' ' 1 - 2 WEEKS = 50 - 500' ' 2 - 3 WEEKS = 100 - 5000' ' 3 - 4 WEEKS = 500 - 51833' ' 4 - 5 WEEKS = 1000 - 42069' ' 5 - 6 WEEKS = [address] - 613043' ' 6 - 8 WEEKS = 47455 - 515053' ' 8 - 12 WEEKS = 14116 - 289196' Lipase [Catalytic activity/Vol] 10 U/L Low 13 - 58 unit/L [facility] Potassium [Moles/Vol] 4.3 mmol/L Normal 3.5 - 5.3 mmol/L [facility] Protein [Mass/Vol] 7.1 g/dL Normal 6.0 - 7.8 gm/dL [facility] Sodium [Moles/Vol] 136 mmol/L Normal 135 - 145 mmol/L [facility] Urea nitrogen [Mass/Vol] 8 mg/dL Normal 5 - 21 mg/dL [facility] Urea nitrogen/Creatinine [Mass ratio] 13 mg/mg Normal 10 - 20 [facility] CRPon 10-22-2023 CRP [Mass/Vol] 1.7 mg/dL Normal <=1.9 [facility] Comment on above: Performed By: #### 2 368648, 1596986, 7973024, 94648794, 7916918, 98245615, 9420535, 4784635, 4351607 ####[facility] [address] [place] [address] Consent for Treatmenton Consent for Treatment [id number]#1.00TIFF Normal [facility] Discharge Instructionson Discharge Instructions [id number]#1.00TIFF Normal [facility] ED Clinical Summaryon 2023 ED Clinical Summary [address] [address] ED Clinical Summary Person Information Name: MARY RODRIGUEZ [place] Age: 38 Years : 1985 Sex: Female Language: Citizen Of [place] PCP: NONE, XXXX Marital Status: Single Visit Id: Visit Reason: Vaginal bleeding - < 20 wks ; Nausea; Abdominal pain; RT SIDE ABD PAIN, CHILLS, VAGINAL DISCHARGE Speciality: Acuity: 3 Enc Type: Emergency Med Service: Emergency Arrival: 10/22/2023 08:59:28 Discharge: 10/22/2023 16:09:45 LOS: 000 07:10 Checkin: 10/22/2023 08:59:28 Checkout: 10/22/2023 16:09:45 Dispo Type: Home (Routine DC) EVENTS: Event Name Event Status Request Date/Time Start Date/Time Complete Date/Time Arrive Complete 10/22/2023 08:59:28 10/22/2023 08:59:28 10/22/2023 08:59:28 Document Home Meds Request 10/22/2023 08:59:28 Triage Complete 10/22/2023 08:59:28 10/22/2023 09:11:53 10/22/2023 09:11:53 Bed Assign Complete 10/22/2023 09:03:02 10/22/2023 09:03:02 10/22/2023 09:03:02 Dr Exam Complete 10/22/2023 09:03:02 10/22/2023 09:26:33 10/22/2023 09:26:33 RN Exam Complete 10/22/2023 09:03:02 10/22/2023 09:19:17 10/22/2023 09:19:17 Registration Complete 10/22/2023 09:26:33 10/22/2023 09:28:32 10/22/2023 09:28:32 Reg Complete Request 10/22/2023 09:28:32 Reg Bed Request Complete 10/22/2023 09:28:32 10/22/2023 09:28:32 10/22/2023 09:28:32 Pending Labs Complete 10/22/2023 09:52:35 10/22/2023 14:12:57 Blood Collect Request 10/22/2023 09:52:35 Lab Complete 10/22/2023 09:52:35 10/22/2023 14:12:57 Urine Collect Complete 10/22/2023 09:52:35 10/22/2023 11:47:08 Pending Labs Complete 10/22/2023 10:10:50 10/22/2023 10:10:50 10/22/2023 10:58:21 Lab Complete 10/22/2023 10:10:50 10/22/2023 10:10:50 10/22/2023 10:58:21 Pending Labs Complete 10/22/2023 10:24:12 10/22/2023 10:24:12 10/22/2023 10:24:13 Pending Labs Cancel 10/22/2023 12:02:25 10/22/2023 12:23:31 Lab Cancel 10/22/2023 12:02:25 10/22/2023 12:23:31 US Complete 10/22/2023 12:02:25 10/22/2023 14:15:31 10/22/2023 15:07:48 Pending Labs Complete 10/22/2023 12:23:34 10/22/2023 12:23:34 10/22/2023 14:02:48 Lab Complete 10/22/2023 12:23:34 10/22/2023 12:23:34 10/22/2023 14:02:48 US Complete 10/22/2023 14:29:22 10/22/2023 14:29:34 10/22/2023 15:04:35 Pending Labs Collected 10/22/2023 15:43:39 Lab Inlab 10/22/2023 15:43:39 Discharge Complete 10/22/2023 15:52:42 10/22/2023 16:09:51 10/22/2023 16:09:51 Transfer Complete 10/22/2023 16:09:51 10/22/2023 16:09:51 10/22/2023 16:09:51 ADDRESS: [address] [place] [place] [id number] PHYS DOC NOTES: MEDICAL INFORMATION: Prescriptions Given: Medications to Continue with No Changes Other Medications ibuprofen (ibuprofen 600 mg Tab) 1 Tablets By Mouth every 6 hours. Refills: 0. multivitamin, ( Multivitamins) 1 Tablets By Mouth every day. PATIENT EDUCATION INFORMATION: Instructions: Miscarriage, Sibw-xn-Huax(Spanis h) Follow up: With: Address: [facility]: [facility] [address] [place] [address] [place] [address] Business (1) Comments: Call the office tomorrow for an appointment either Monday or Monday of this week. DIAGNOSIS: Missed ; Right flank pain Normal [facility] ED Note-Physicianon 10-22-19 ED Note-Physician Basic Information Time Seen: Hermelindo Monge MD 10/22/2023 09:26 Chief Complaint Pt states that shes having pain on her right starting a week ago, with chills. Pt states that she took a test yesterday and the test was positive. LMP was in july. Vaginal bleeding started last week. History of Present Illness 38-year-old female presents with complaint of right flank pain that is been there for the past several days. Pain is aggravated mostly by moving from a laying to a sitting position. Pain does not radiate to the abdomen. There has been some slight nausea with this. There is been no vomiting. She she denies any cough or shortness of breath. She states her periods have been irregular for some time. Her last normal period was in July. She states that she has had vaginal bleeding this past 1 week. Is not been heavy. She has had 6 previous pregnancies. There were no problems with those pregnancies. She does state that she had a positive test at home last week. She denies any dysuria with this. Patient has had no previous abdominal surgery. She does not require anything for pain at this time. Review of Systems A 10 point review of systems is negative except as noted above. Medical and Surgical History: Reviewed and noted Social history: Lives at home Tobacco: Denies Physical Exam Vitals & Measurements T: 36.6 ?C(Oral) HR: 66(Monitored) RR: 16 BP: 131/65 SpO2: 100% HT: 152 cm WT: 92.4 kg BMI: 39.99 This is a overweight 38-year-old female she is alert and oriented skin is warm and dry color is pink on room air. The heart is regular not accelerated there is no murmur gallop or rub. Lungs are clear there is good air entry there are no adventitious sounds. Skin shows no rashes. There is some tenderness in the right flank and right CVA region. The abdomen itself is soft and nontender. Unable to push deeply everywhere on the abdomen I do not feel any enlarged uterus or mass. Bowel sounds are active. When the patient returned from ultrasound we did perform a pelvic exam. The cervix does appear to be cyanotic. There is a mild ectropion of the cervical mucosa. There is no active bleeding or tissue. The cervix is closed. The cervix does feel parous. The cervix is nontender to movement and palpation. The uterus appears to be rounded about 10 cm in diameter but it is nontender. I do not detect any adnexal masses or tenderness. Medical Decision Making Patient's quantitative test was 90,000. Ultrasound was performed and it showed material unorganized in the cavity of the uterus. There was no gestational sac there was no evidence of a fetus. They did not detect any adnexal masses. They did scan the right kidney no definite evidence of hydronephrosis with this kidney. We will discussed the case with our MULTIPLEX OPERATOR on-call, Dr. Gilmore. He does want to see the patient in his office no later than Monday of this week. He anticipates a repeat ultrasound in 1 week. He feels that if this was an ectopic with a beta-hCG of 90,000 it would have manifested itself by now. He is suspicious for a missed . Patient is Rh+. Assessment/Plan Missed (O02.1: Missed ) Right flank pain (R10.9: Unspecified abdominal pain) Orders: ABO/Rh Amylase Level Basic Metabolic Panel Beta hCG Qual Beta hCG Quantitative C-Reactive Protein CBC w/ Auto Diff Cervical Culture Chlam/GC/Trich,VIKY eGFR Extra Blue Tube Hepatic Function Panel Lipase Level UA With Cult Reflex US 1st Trimester US Transvaginal US Renal Disposition Plan Patient Discharge Condition Stable Discharge Disposition Home Discharge Prescription List Prescriptions No active prescription medications Follow-up With When Contact Information Mango GARRIDOO [address] [place] [address]- Business (1) Additional Instructions: Call the office tomorrow for an appointment either Monday or Monday of this week. Patient Education Miscarriage, Nfmi-sx-Lesp Problem List/Past Medical History Ongoing Encounter for supervision of high risk in third trimester, antepartum Language barrier Request for sterilization Historical Gestational diabetes Procedure/Surgical History Dilatation and curettage (07/08/2020), Dilatation and curettage, None. Medications Inpatient No active inpatient medications Home ibuprofen 600 mg Tab, 600 mg= 1 tab(s), Oral, q6hr Multivitamins, 1 tab(s), Oral, Daily Allergies No Known Allergies Social History Alcohol - Denies Alcohol Use, 12/07/2011 DENIES, 09/08/2020 Employment/School - Not employed or in school, 12/07/2011 Home/Environment Lives with Significant other. Living situation: Home/Independent., 12/07/2011 Substance Abuse - Denies Substance Abuse, 12/07/2011 DENIES, 09/08/2020 Tobacco - Denies Tobacco Use, 12/07/2011 Never (less than 100 (more content not included)... Normal [facility] Comment on above: Result Comment: Elec tronically Signed By: Saleem FLOWERS, Hermelindo\.br\Date and Time Signed: 10/22/23 15:57 EST ED Patient Education Noteon 10-22-2023 ED Patient Education Note Obstetrics and Gynecology Aborto espont?santa Miscarriage El aborto espont?santa es la p?rdida de un embarazo antes de la semana?20. A veces, el embarazo termina antes de que la patrica sepa que est? embarazada. Si pierde un embarazo, hable con wilcox m?dico sobre: ? Las preguntas que tenga sobre la p?rdida del beb?. ? C?mo atravesar el duelo. ? Planes para un futuro embarazo. ?Cu?les son las causas? Muchas veces, se desconoce la causa de esta afecci?n. ?Qu? incrementa el riesgo? Estas cosas pueden hacer que leonardo embarazada sea m?s propensa a perder un embarazo: Ciertos problemas m?dicos ? Trastornos que afectan las hormonas, esa los siguientes: ? Enfermedad tiroidea. ? S?ndrome del ovario poliqu?stico. ? Diabetes. ? Leonardo enfermedad que provoca que el sistema del cuerpo que combate las enfermedades se ataque a s? mismo por error. ? Infecciones. ? Problemas de sangrado. ? Tener mucho sobrepeso. Factores de estilo de bernard ? Consumir productos que contienen nicotina o tabaco. ? Estar cerca de humo de tabaco. ? Beber alcohol. ? Consumir serge cafe?na. ? Consumir drogas. Problemas relacionados con las partes o los ?rganos genitales ? Sufrir la apertura y el borrado del cleveland uterino antes de la fecha estimada de parto. El cleveland uterino es la parte m?s baja del ?tero. ? Tener s?ndrome de Asherman, que deriva en: ? Cicatrices en el ?tero. ? Forma anormal del ?tero. ? Tumores (fibromas) en el ?tero. ? Problemas en el cuerpo que est?n presentes desde el nacimiento. ? Infecci?n en el cleveland uterino o el ?tero. Antecedentes personales o de spencer ? Lesiones. ? Deirdre perdido un embarazo antes. ? Ser sarah de 18?a?os o mayor de 35?a?os de edad. ? Estar cerca de leonardo sustancia nociva, esa la radiaci?n. ? Que haya plomo u otros metales pesados en: ? Cosas que come o modesto. ? El aire que la rodea. ? Nicole ciertos medicamentos. ?Cu?les son los signos o s?ntomas? ? Jourdan o manchas de jourdan procedentes de la vagina. Tambi?n puede tener c?licos o dolor. ? Dolor o c?licos en la arthur o en la parte baja de la espalda. ? [place] de l?quido o tejido por la vagina. ?C?mo se trata? A veces, el tratamiento no es necesario. Si necesita tratamiento, es posible que se la trate con: ? Un procedimiento para abrir m?s el cleveland uterino y sacar tejido del ?tero. ? Medicamentos. Tj vez le den leonardo inyecci?n de un medicamento llamado inmunoglobulina Jose A(D). Siga estas instrucciones en wilcox casa: Medicamentos ? Use los medicamentos de venta michael y los recetados solamente esa se lo haya indicado el m?dico. ? Si le recetaron un antibi?gita, t?graham esa se lo haya indicado el m?dico. No deje de tomarlo aunque comience a sentirse mejor. Actividad ? Perri reposo esa se lo haya indicado el m?dico. Preg?ntele al m?dico qu? actividades son seguras para usted. ? Pida ayuda para realizar las tareas de la casa delmy charlee tiempo. Instrucciones generales ? Observe cu?nto tejido sale de la vagina. ? Observe el demarco?o de cualquier co?gulo de jourdan que salga de la vagina. ? No tenga relaciones sexuales ni se perri duchas vaginales hasta que el m?dico la autorice. ? No se ponga cosas, esa tampones, en la vagina hasta que el m?dico la autorice. ? Para ayudarlos a usted y a wilcox tiffanie con el duelo: ? Hable con el m?dico. ? Vaya al psic?logo. ? Cuando est? lista, hable con el m?dico sobre: ? Las cosas que puede hacer por wilcox spencer. ? C?mo puede estar harrison si queda embarazada de nuevo. ? Cumpla con todas las visitas de seguimiento. D?nde buscar m?s informaci?n ? The [place] [employer] ([employer] Ob[employer] y Ginec?logos): acog.org ? U.S. Department of Health and Human Services, Office on Women?s Health (Departamento de Spencer y Servicios Humanos de los [place]idos, Oficina de Spencer de la Patrica): hrsa.gov/office-wom ens-health Comun?quese con un m?dico si: ? Tiene fiebre o escalofr?os. ? Le sale l?quido con mal olor de la vagina. ? Aumenta el sangrado. ? Le salen co?gulos de jourdan o tejido de la vagina. Solicite ayuda de inmediato si: ? Tiene espasmos o dolor muy intensos en el abdomen o en la espalda. ? Llena m?s de 2?ap?sitos sanitarios grandes en leonardo hora delmy m?s de 2?horas. ? Se siente d?shaji o mareada. ? Se desmaya. ? Se siente alexandr y tiene pensamientos tristes gran parte del tiempo. ? Piensa en hacerse da?o. Busque ayuda de inmediatosi alguna vez siente que puede hacerse da?o a usted misma o a otros, o tiene pensamientos de poner fin a wilcox bernard. Dir?alysia al centro de urgencias m?s cercano o: ? Comun?quese con el servicio de emergencias de wilcox localidad (911 en los [place]). ? Llame a National Suicide Prevention Lifeline (L?chelsie Telef?danica Nacional para la Prevenci?n del Suicidio) al . Est? disponible las 24 horas del d?a. ? Env?e un mensaje de texto a la l?chelsie para casos de crisis (more content not included)... Normal [facility] ED Patient Summaryon 024 ED Patient Summary [address] [address] Patient Discharge Instructions Person Information Name: MARY RODRIGUEZ Age: 38 Years Arrival Date: 10/22/2023 08:59:28 Discharge Diagnosis: Missed ; Right flank pain Primary Care Physician: NONE, XXXX Provider Information Primary Provider: Hermelindo Monge MD Advanced Sql Dba:None The exam and treatment you received in the Emergency Department were for an urgent problem and are not intended as complete care. It is important that you follow up with a doctor, nurse practitioner, or physician?s medical lab assistant for ongoing care. If your symptoms become worse or you do not improve as expected and you are unable to reach your usual health care provider, you should return to the Emergency Department. We are available 24 hours a day. MARY RODRIGUEZ has been given the following list of patient education materials, prescriptions and follow-up instructions: Follow-up Instructions: With: Address: When: Mango GILMORE [facility], [address] [place] [address] [place] [address] Business (1) Comments: Call the office tomorrow for an appointment either Monday or Monday of this week. In the event that this physician does not participate in your insurance network, please consult with your insurance company to find a nearby participating provider. Patient Education Materials: Miscarriage, Jvok-rs-Ounh(Spanis h) A MESSAGE TO ALL PATIENTS REGARDING OPIOIDS PRESCRIPTION OPIOIDS: WHAT YOU NEED TO KNOW Prescription opioids can be used to help relieve gulixnwr-qe-qeogcx pain and are often prescribed following a surgery or injury, or for certain health conditions. These medications can be an important part of the treatment but also come with serious risks. It is important to work with your healthcare provider to make sure you are getting the safest, most effective care. WHAT ARE THE RISKS AND SIDE EFFECTS OF OPIOID USE? Prescription opioids carry serious risks of addiction and overdose, especially with prolonged use. An opioid overdose, often marked by slowed breathing, can cause sudden . The use of prescription opioids can have a number of side effects as well, even when taken as directed: ? Tolerance?meaning you might need to take more of the medication for the same pain relief ? Physical dependence?meaning you have symptoms of withdrawal when a medication is stopped ? Increased sensitivity to pain ? Constipation ? Nausea, vomiting, and dry mouth ? Sleepiness and dizziness ? Confusion ? Depression ? Low levels of testosterone that can result in lower sex drive, energy, and strength ? Itching and sweating RISKS ARE GREATER WITH: ? History of drug misuse, substance use disorder, or overdose ? Mental health conditions (such as depression or anxiety) ? Sleep apnea ? Older age (65 years and older) ? Avoid alcohol while taking prescription opioids. Also, unless specifically advised by your health care provider, medications to avoid include: ? Benzodiazepines (such as Xanax or Valium) ? Muscle relaxants (such as Soma or Flexeril) ? Hypnotics (such as Ambien or Lunesta) ? Other prescription opioids KNOW YOUR OPTIONS Talk to your health care provider about ways to manage your pain that don?t involve prescription opioids. Some of these options may actually work better and have fewer risks and side effects. Options may include: ? Pain relievers such as acetaminophen, ibuprofen, and naproxen ? Some medication that are also used for depression or seizures ? Physical therapy and exercise ? Cognitive behavioral therapy, a psychological, goal-directed approach, in which patients learn how to modify physical, behavioral, and emotional triggers of pain and stress. IF YOU ARE PRESCRIBED OPIOIDS FOR PAIN: ? Never take opioids in greater amounts or more often than prescribed. ? Follow up with your primary health care provider. o Work together to create a plan on how to manage your pain. o Talk about ways to help manage your pain that don?t involve prescription opioids. o Talk about any and all concerns and side effects. ? Help prevent misuse and abuse o Never sell or share prescription opioids. o Never use another person?s prescription opioids. ? Store prescription opioids in a secure place and out of reach of others (this may include visitors, children, friends, and family). ? Safely dispose of unused prescription opioids: Find your community drug take-back program or your pharmacy mail-back program, or flush them down the toilet, following guidance from the Food and Drug Administration (www.fda.gov/Drugs/ ResourcesForYou). ? Visit www.cdc.gov/drugove rdose to learn about the risks of opioids abuse and overdose. ? If you believe you may be struggling with addiction, tell your health car (more content not included)... Normal [facility] HEMATOLOGYOrdered By: SYSTEM SYSTEM on 10-22-2023 Basophils/100 WBC (Bld) 0.5 % Normal 0.0 - 2.0 % Remisol Heme Basophils/Leukocytes Auto (Bld) [Pure # fraction] 0.0 E9/L Normal 0.0 - 0.2 E9/L Remisol Heme Eosinophils (Bld) [#/Vol] 0.1 E9/L Normal 0.0 - 0.5 E9/L Remisol Heme Eosinophils/100 WBC (Bld) 1.2 % Normal 0.0 - 8.0 % Remisol Heme Erythrocyte distribution width (RBC) [Ratio] 16.4 % High 10.9 - 14.2 % Remisol Heme Hematocrit (Bld) [Volume fraction] 33.6 % Low 34.0 - 46.0 % Remisol Heme Hemoglobin (Bld) [Mass/Vol] 11.1 g/dL Low 12.0 - 16.0 gm/dL Remisol Heme Lymphocytes (Bld) [#/Vol] 1.8 E9/L Normal 1.0 - 4.0 E9/L Remisol Heme Lymphocytes/100 WBC (Bld) 26.3 % Normal 14.0 - 50.0 % Remisol Heme MCH (RBC) [Entitic mass] 28.3 pg Normal 27.0 - 34.0 pg Remisol Heme MCHC (RBC) [Mass/Vol] 33.1 g/dL Normal 31.4 - 36.0 gm/dL Remisol Heme MCV (RBC) [Entitic vol] 85.7 fL Normal 80.0 - 100.0 fL Remisol Heme Monocytes (Bld) [#/Vol] 0.5 E9/L Normal 0.2 - 1.0 E9/L Remisol Heme Monocytes/100 WBC (Bld) 7.4 % Normal 4.0 - 14.0 % Remisol Heme Neutrophils (Bld) [#/Vol] 4.4 E9/L Normal 2.0 - 7.5 E9/L Remisol Heme Neutrophils/100 WBC (Bld) 64.6 % Normal 36.0 - 75.0 % Remisol Heme Platelet mean volume (Bld) [Entitic vol] 8.6 fL Normal 6.4 - 10.8 fL Remisol Heme Platelets (Bld) [#/Vol] 313.0 E9/L Normal 150.0 - 500.0 E9/L Remisol Heme RBC (Bld) [#/Vol] 3.9 E12/L Low 4.3 - 5.9 E12/L Remisol Heme WBC corrected for nucl RBC Auto (Bld) [#/Vol] 6.8 E9/L Normal 4.0 - 11.0 E9/L Remisol Heme Hep Func Panelon 10-22-2023 Albumin [Mass/Vol] 3.6 g/dL Normal 3.3-5.0 [facility] Comment on above: Performed By: #### 2 [id number], 5224950, 6818717, 45970493, 6874724, 67682507, 9341946, 4943635, 6433977 ####[facility] [address] [place] [address] Albumin/Globulin (S) [Mass conc ratio] 1.0 Low 1.1-2.2 [facility] Comment on above: Performed By: #### 2 688117, 9683054, 8360962, 99098990, 6299071, 92301374, 3013848, 1047563, 0342652 ####[facility] [address] [place] [address] ALP [Catalytic activity/Vol] 70 Int._Unit/L Normal 21-98 [facility] Comment on above: Performed By: #### 2 980788, 7663242, 9342741, 35974703, 2538144, 96756914, 1983428, 2318408, 8120702 ####[place] [place] [address] ALT No additional P-5'-P [Catalytic activity/Vol] 8 Int._Unit/L Normal 6-46 [facility] Comment on above: Performed By: #### 2 986316, 4840615, 4470807, 60747489, 6437607, 93831749, 0671375, 8761736, 2669174 ####[address] [place] [address]3057 AST [Catalytic activity/Vol] 10 Int._Unit/L Normal 5-43 [facility] Comment on above: Performed By: #### 2 889218, 5671513, 9877776, 12252647, 6750770, 77630961, 4178246, 3599032, 8446386 ####[place] [address] Bilirubin [Mass/Vol] 0.3 mg/dL Normal 0.0-1.1 [facility] Comment on above: Performed By: #### 2 320835, 1008112, 4198470, 51762438, 8586413, 45732474, 0113440, 9704270, 0562754 ####[place] [address] Bilirubin.direct [Mass/Vol] 0.0 mg/dL Normal 0.0-0.4 [facility] Comment on above: Performed By: #### 2 411230, 0095361, 9676693, 95472428, 9220381, 96526263, 8596866, 6996489, 5041492 ####[address] [address] Bilirubin.indirect [Mass or moles/Vol] 0.3 mg/dL Normal 0.1-0.9 [facility] Comment on above: Performed By: #### 2 131963, 3056982, 8984176, 44303214, 9747707, 89286158, 4130672, 7989491, 8717357 ####[address] [place] [address] Globulin (S) [Mass/Vol] 3.5 g/dL Normal 1.4-4.0 [facility] Comment on above: Performed By: #### 2 628369, 9636529, 3490238, 98962762, 3675092, 85236540, 7886573, 5760109, 6860646 ####[facility] [address] [place] [address] Protein [Mass/Vol] 7.1 g/dL Normal 6.0-7.8 [facility] Comment on above: Performed By: #### 2 058405, 6887544, 1844684, 20532695, 1646159, 52677813, 2000880, 3011835, 2915716 ####[address] [address] Lipase Levelon 10-22-2023 Lipase [Catalytic activity/Vol] 10 U/L Low 13-58 [facility] Comment on above: Performed By: #### 2 252591, 0995911, 4251243, 56392738, 9278612, 88997613, 7910606, 8150405, 4012355 ####[address] [address] No Panel InformationOrdered By: Katie Salguero on 10-22-2023 WP No Trichomonas observed. No clue cells present [facility] SEROLOGYOrdered By: Victoria Lechuga on 10-22-2023 Beta HCG ( test) Ql Positive (10/22/23 10:02 AM) Normal [facility] Man Sero UA With Cult Reflexon 2023 Bacteria LM Ql (Urine sed) TRACE Normal Trace [facility] Comment on above: Performed By: #### 1 [id number] ####[facility] [address] [place] [address] Bilirubin Ql (U) Negative Normal Negative [facility] Comment on above: Performed By: #### 1 9161892 ####[facility] [address] [place] [address] Clarity (U) SL CLOUDY Invalid Interpretation Code [facility] Comment on above: Performed By: #### 1 9395216 ####[facility] [address] [place] [address] Color (U) YELLOW Normal Yellow [facility] Comment on above: Performed By: #### 1 4382532 ####[facility] [address] [place] [address] Epithelial cells.squamous LM.HPF (Urine sed) [#/Area] /[HPF] Normal 0-2 [facility] Comment on above: Performed By: #### 1 0751218 ####[address] [address] Glucose Test strip (U) [Mass/Vol] Negative Normal Negative [facility] Comment on above: Performed By: #### 1 8611749 ####[address] [address] Hemoglobin Ql (U) 2+ Abnormal Negative [facility] Comment on above: Performed By: #### 1 5950195 ####[facility] [address] [place] [address] Ketones (U) [Mass/Vol] Negative Normal Negative [facility] Comment on above: Performed By: #### 1 0599138 ####[address] [place] [address] [place].plasma/[place] .RBC (Bld) [Mass ratio] 4-20 Normal 0-3 [facility] Comment on above: Performed By: #### 1 7440915 ####[facility] [address] [place] [address] Mucus Ql (Urine sed) 1+ Normal Fish [facility] Comment on above: Performed By: #### 1 7061686 ####[facility] [address] [place] [address] Nitrite Ql (U) Negative Normal Negative [facility] Comment on above: Performed By: #### 1 8451957 ####[facility] [address] [place] [address] pH (U) 7.5 [pH] Invalid Interpretation Code 5.0-9.0 [facility] Comment on above: Performed By: #### 1 3219786 ####[place] [address] Protein (U) [Mass/Vol] Negative Normal Negative [facility] Comment on above: Performed By: #### 1 8533846 ####[place] [address] Specific gravity (U) [Rel density] 1.020 Invalid Interpretation Code 1.005-1.030 [facility] Comment on above: Performed By: #### 1 0758749 ####[place] [address] Type of Urine collection method Clean Catch Normal [facility] Comment on above: Performed By: #### 1 9117604 ####[place] [address] Urobilinogen Qn (U) 0.2 {Leslye'U}/dL Normal 0.0-1.0 [facility] Comment on above: Performed By: #### 1 4696912 ####[place] [address] WBC Auto Ql (U) TRACE Abnormal Negative [facility] Comment on above: Performed By: #### 1 7127149 ####[place] [address] WBC LM.HPF (Urine sed) [#/Area] 0-5 Normal 0-5 [facility] Comment on above: Performed By: #### 1 5818010 ####[place] [address] URINALYSISOrdered By: Cynthia Lechuga on 10-22-2023 Bacteria LM Ql (Urine sed) Trace /HPF Normal Trace/HPF [facility] UA Auto SS Bilirubin Ql (U) Negative (10/22/23 11:15 AM) Normal Negative [facility] UA Auto SS Clarity (U) SL CLOUDY Invalid Interpretation Code [facility] UA Auto SS Color (U) Yellow (10/22/23 11:15 AM) Normal Yellow [facility] UA Auto SS Epithelial cells.squamous LM.HPF (Urine sed) [#/Area] /[HPF] Normal 0-2/HPF [facility] UA Aut o SS Glucose Test strip (U) [Mass/Vol] Negative (10/22/23 11:15 AM) Normal Negative [facility] UA Auto SS Hemoglobin Ql (U) 2+ *ABN* (10/22/23 11:15 AM) Invalid Interpretation Code Negative [facility] UA Auto SS Ketones (U) [Mass/Vol] Negative (10/22/23 11:15 AM) Normal Negative [facility] UA Auto SS [place].plasma/[place] .RBC (Bld) [Mass ratio] 4-20 /HPF Normal 0-3/HPF [facility] UA Auto SS Mucus Ql (Urine sed) 1+ (10/22/23 11:15 AM) Normal [facility] UA Auto SS Nitrite Ql (U) Negative (10/22/23 11:15 AM) Normal Negative [facility] UA Auto SS pH (U) 7.5 *NA* (10/22/23 11:15 AM) Invalid Interpretation Code 5.0 - 9.0 [facility] UA Auto SS Protein (U) [Mass/Vol] Negative (10/22/23 11:15 AM) Normal Negative [facility] UA Auto SS Specific gravity (U) [Rel density] 1.020 *NA* (10/22/23 11:15 AM) Invalid Interpretation Code 1.005 - 1.030 [facility] UA Auto SS UA Spec Desc Clean Catch (10/22/23 11:15 AM) Normal [facility] UA Auto SS Urobilinogen Qn (U) 0.5020202 {Leslye'U}/dL Normal 0.0 - 1.0 EU/dL [facility] UA Auto SS WBC Auto Ql (U) Trace *ABN* (10/22/23 11:15 AM) Invalid Interpretation Code Negative [facility] UA Auto SS WBC LM.HPF (Urine sed) [#/Area] 0-5 /HPF Normal 0-5/HPF [facility] UA Auto SS US 1st Trimesteron 10-22-2023 US 1st Trimester Exam Date/Time: 10/22/2023 15:07 EST Reason for Exam: Threatened Miscarriage;Other (please specify) Report [facility] [phone] IMPRESSION: Irregularly shaped gestational sac, with no uterine identified. Mean sac diameter correlates to 6 weeks 5 days. Differential includes delayed intrauterine versus failed . Short-term follow-up pelvic sonography with beta hCG correlation recommended. CLINICAL HISTORY: Vaginal bleeding. Threatened miscarriage. Beta hCG 91,859. Findings: Transabdominal and transvaginal sonography was performed with transvaginal imaging obtained to better assess pelvic anatomy. The uterus measurements and an estimated volume are: Uterus Length: 11.7 cm Uterus Width: 8.5 cm Uterus Height: 6.3 cm Uterus Volume: 325.6 cm3 Endometrial canal measures 26 mm. Irregularly-shaped gestational sac is identified, with surrounding decidual reaction. Mean sac diameter measures 1.81 cm yielding estimated sonographic gestational age 6 weeks, 5 days. No pole and no yolk sac is identified. The right ovary measurements and estimated volume are: Right Ovary Length: 2.9 cm Right Ovary Width: 2.7 cm Right Ovary Height: 2.1 cm Right Ovary Volume: 8.4 cm3 Left ovary not visualized secondary to overlying bowel gas. No adnexal masses. No free fluid. Report Ordering Provider: Hermelindo Monge FINAL REPORT Dictated: 10/22/2023 3:39 pm Bryce Aguirre MD Signed (Electronic Signature): 10/22/2023 3:39 pm Signed by: Bryce Aguirre MD Transcribed by: FACUNDO Technologist: BLAINE Technical Comments LMP : 08/18/2023=[id number] Irregular History 7 Para 6 Transabdominal Ultrasound Performed Transvaginal Ultrasound Performed Normal [facility] US Transvaginalon 10-22-2023 US Transvaginal Exam Date/Time: 10/22/2023 15:04 EST Reason for Exam: vaginal bleeding Report [facility] [phone] Please review ultrasound , for report of ultrasound transvaginal. Ordering Provider: Hermelindo Monge FINAL REPORT Dictated: 10/22/2023 3:39 pm Bryce Aguirre MD Signed (Electronic Signature): 10/22/2023 3:39 pm Signed by: Bryce Aguirre MD Transcribed by: FACUNDO Technologist: BLAINE Normal [facility] US Renalon 10-22-2023 US Renal Exam Date/Time: 10/22/2023 15:03 EST Reason for Exam: Hematuria Report [facility] [phone] IMPRESSION: NEGATIVE ULTRASOUND OF THE KIDNEYS. CLINICAL HISTORY: Hematuria. COMPARISON: NONE. Findings: Right kidney measures 10.8 x 4.5 x 6.2 cm. Left kidney measures 11.2 x 5.4 x 5.0 cm. Both kidneys normal in size, shape, echogenicity, color flow. No calculi, hydronephrosis, cortical thinning, cystic/solid lesions identified. Ordering Provider: Hermelindo Monge FINAL REPORT Dictated: 10/22/2023 3:31 pm Bryce Aguirre MD Signed (Electronic Signature): 10/22/2023 3:31 pm Signed by: Bryce Aguirre MD Transcribed by: FACUNDO Technologist: BLAINE Garcia [facility] eGFRon 10-22-2023 eGFR 116 mL/min/1.73 m2 Normal >=59 [facility] Comment on above: Order Comment: Order added by Discern Expert. Performed By: #### 2 [id number] ####[facility] [address] [place] [address] Consent for Treatmenton Consent for Treatment [id number] Normal [facility] Discharge Instructionson Discharge Instructions [id number] Normal [facility] ED Clinical Summaryon 2023 ED Clinical Summary [address] [address] ED Clinical Summary Person Information Name: MARY RODRIGUEZ [facility] Age: 38 Years : 1985 Sex: Female Language: Citizen Of [place] PCP: NONE, XXXX Marital Status: Single Visit Id: Visit Reason: Sinus Pain/Congestion; Fever; HIGH FEVER, COUGH Speciality: Acuity: 4 Enc Type: Emergency Med Service: Emergency Arrival: 09/29/2023 19:29:13 Discharge: 09/29/2023 21:42:53 LOS: 000 02:13 Checkin: 09/29/2023 19:29:13 Checkout: 09/29/2023 21:42:53 Dispo Type: Home (Routine DC) EVENTS: Event Name Event Status Request Date/Time Start Date/Time Complete Date/Time Arrive Complete 09/29/2023 19:29:13 09/29/2023 19:29:13 09/29/2023 19:29:13 Document Home Meds Request 09/29/2023 19:29:13 Triage Complete 09/29/2023 19:29:13 09/29/2023 19:55:44 09/29/2023 19:55:44 Registration Complete 09/29/2023 19:33:49 09/29/2023 19:33:49 09/29/2023 19:33:49 Reg Complete Request 09/29/2023 19:33:49 Reg Bed Request Complete 09/29/2023 19:33:49 09/29/2023 19:33:49 09/29/2023 19:33:49 Pending Labs Complete 09/29/2023 19:46:16 09/29/2023 20:51:14 Lab Complete 09/29/2023 19:46:16 09/29/2023 20:51:14 Swab Complete 09/29/2023 19:46:16 09/29/2023 20:51:14 Bed Assign Complete 09/29/2023 20:52:00 09/29/2023 20:52:00 09/29/2023 20:52:00 Dr Exam Complete 09/29/2023 20:52:00 09/29/2023 21:08:20 09/29/2023 21:08:20 RN Exam Complete 09/29/2023 20:52:00 09/29/2023 21:14:49 09/29/2023 21:14:49 Registration Request 09/29/2023 21:08:20 Discharge Complete 09/29/2023 21:31:51 09/29/2023 21:42:59 09/29/2023 21:42:59 Transfer Complete 09/29/2023 21:42:59 09/29/2023 21:42:59 09/29/2023 21:42:59 ADDRESS: [address] [facility] [id number] PHYS DOC NOTES: MEDICAL INFORMATION: Prescriptions Given: Medications to Continue with No Changes Other Medications ibuprofen (ibuprofen 600 mg Tab) 1 Tablets By Mouth every 6 hours. Refills: 0. multivitamin, ( Multivitamins) 1 Tablets By Mouth every day. PATIENT EDUCATION INFORMATION: Instructions: Influenza, Adult Follow up: With: Address: When: [facility], [address] [place] [address] [address], [place] [address] Business (1) In 3 days 10/02/2023 DIAGNOSIS: Influenza Normal [facility] ED Note-Physicianon 09-29-19 ED Note-Physician Basic Information Time Seen: Yonathan Melchor DO 09/29/2023 21:08 Chief Complaint pt arrives for c/o fever,cold like symptoms since . pt took ibuprophen at 1400 today History of Present Illness HPI: Patient is a 38-year-old female who presents with her 2-year-old family member who also has symptoms for cough, fever, chills. Patient states this for started a day and a half ago and has progressively worsened. She states that she does have some bodyaches with this. She does feel slightly short of breath. She denies any nausea vomiting or diarrhea. She denies any chest pain or palpitations. She last took a dose of ibuprofen at 1400 today. ROS: Pertinent review of systems conducted and is negative except as noted above. Physical exam: General: nontoxic appearing and in no distress HEENT: Mucous membranes moist Neuro: awake and alert Neck: supple, trachea midline Card: Heart regular rate and rhythm no murmur Resp: Lungs clear to auscultation no wheeze or rhonchi Abd: Soft and nondistended. No tenderness to palpation with no rebound or guarding. Ext: No gross deformity or edema Physical Exam Vitals & Measurements T: 39 ?C(Oral) HR: 102(Peripheral) RR: 16 BP: 152/83 SpO2: 98% HT: 152 cm WT: 89.8 kg BMI: 38.87 Medical Decision Making MEDICAL DECISION MAKING Number and Complexity of Problems Differential Diagnosis: [] [facility] Data External documents reviewed: N/A My EKG interpretation: Noted in chart if applicable My CT interpretation: N/A My X-ray interpretation: Noted in chart if applicable My Ultrasound interpretation: N/A Decision rules/scores evaluated: N/A Discussed with: N/A Treatment and Disposition ED Course: Is nontoxic-appearing and in no distress. She has flulike symptoms so we will obtain COVID and influenza swabs. Patient is positive for influenza B. We discussed this diagnosis at bedside. We discussed the plan of discharge with continued oral hydration as well as Tylenol and Motrin as needed. She will follow-up with her primary care physician. Shared decision making: As above Code status: N/A Assessment/Plan Influenza (J11.1: Influenza due to unidentified influenza virus with other respiratory manifestations) Orders: Influenza A&B Ag Rapid COVID Antigen ([facility]) Disposition Plan Discharge Prescription List Prescriptions No active prescription medications Follow-up With When Contact Information AKUA MAKI In 3 days 10/02/[address], [place] [address] [facility] (1) Additional Instructions: Patient Education Influenza, Adult Problem List/Past Medical History Ongoing Encounter for supervision of high risk in third trimester, antepartum Language barrier Request for sterilization Historical Gestational diabetes Procedure/Surgical History Dilatation and curettage (07/08/2020), Dilatation and curettage, None. Medications Inpatient No active inpatient medications Home ibuprofen 600 mg Tab, 600 mg= 1 tab(s), Oral, q6hr Multivitamins, 1 tab(s), Oral, Daily Allergies No Known Allergies Social History Alcohol - Denies Alcohol Use, 12/07/2011 DENIES, 09/08/2020 Employment/School - Not employed or in school, 12/07/2011 Home/Environment Lives with Significant other. Living situation: Home/Independent., 12/07/2011 Substance Abuse - Denies Substance Abuse, 12/07/2011 DENIES, 09/08/2020 Tobacco - Denies Tobacco Use, 12/07/2011 Never (less than 100 in lifetime) Tobacco Use:. Never Smokeless Tobacco Use:., 09/08/2020 Lab Results Influenzae A Ag: NEGATIVE1 (09/29/23 20:10:00) Influenzae B Ag: Positive1 Abnormal (09/29/23 20:10:00) Rapid COVID Ag: Not Detected (09/29/23 20:10:00) Rapid COV Int NEG Ctl: Pass (09/29/23 20:10:00) Rapid COV Int POS Ctl: Pass (09/29/23 20:10:00) Diagnostic Results No qualifying data available. Normal [facility] Comment on above: Result Comment: Elec tronically Signed By: Yonathan Melchor DO\.br\Date and Time Signed: 09/29/23 21:33 EST ED Patient Education Noteon 09-29-2023 ED Patient Education Note Infectious Disease Influenza, Adult Influenza, also called the flu, is a viral infection that mainly affects the respiratory tract. This includes the lungs, nose, and throat. The flu spreads easily from person to person (is contagious). It causes common cold symptoms, along with high fever and body aches. What are the causes? This condition is caused by the influenza virus. You can get the virus by: ? Breathing in droplets that are in the air from an infected person's cough or sneeze. ? Touching something that has the virus on it (has been contaminated) and then touching your mouth, nose, or eyes. What increases the risk? The following factors may make you more likely to get the flu: ? Not washing or sanitizing your hands often. ? Having close contact with many people during cold and flu season. ? Touching your mouth, eyes, or nose without first washing or sanitizing your hands. ? Not getting an annual flu shot. You may have a higher risk for the flu, including serious problems, such as a lung infection (pneumonia), if you: ? Are older than 65. ? Are . ? Have a weakened disease-fighting system (immune system). This includes people who have HIV or AIDS, are on chemotherapy, or are taking medicines that reduce (suppress) the immune system. ? Have a long-term (chronic) illness, such as heart disease, kidney disease, diabetes, or lung disease. ? Have a liver disorder. ? Are severely overweight (morbidly obese). ? Have anemia. ? Have asthma. What are the signs or symptoms? Symptoms of this condition usually begin suddenly and last 4?14 days. These may include: ? Fever and chills. ? Headaches, body aches, or muscle aches. ? Sore throat. ? Cough. ? Runny or stuffy (congested) nose. ? Chest discomfort. ? Poor appetite. ? Weakness or fatigue. ? Dizziness. ? Nausea or vomiting. How is this diagnosed? This condition may be diagnosed based on: ? Your symptoms and medical history. ? A physical exam. ? Swabbing your nose or throat and testing the fluid for the influenza virus. How is this treated? If the flu is diagnosed early, you can be treated with antiviral medicine that is given by mouth (orally) or through an IV. This can help reduce how severe the illness is and how long it lasts. Taking care of yourself at home can help relieve symptoms. Your health care provider may recommend: ? Taking xrjv-ltb-xwpvyoh medicines. ? Drinking plenty of fluids. In many cases, the flu goes away on its own. If you have severe symptoms or complications, you may be treated in a hospital. Follow these instructions at home: Activity ? Rest as needed and get plenty of sleep. ? Stay home from work or school as told by your health care provider. Unless you are visiting your health care provider, avoid leaving home until your fever has been gone for 24 hours without taking medicine. Eating and drinking ? Take an oral rehydration solution (ORS). This is a drink that is sold at pharmacies and retail stores. ? Drink enough fluid to keep your urine pale yellow. ? Drink clear fluids in small amounts as you are able. Clear fluids include water, ice chips, fruit juice mixed with water, and low-calorie sports drinks. ? Eat bland, mlcp-fq-evdxqa foods in small amounts as you are able. These foods include bananas, applesauce, rice, lean meats, toast, and crackers. ? Avoid drinking fluids that contain a lot of sugar or caffeine, such as energy drinks, regular sports drinks, and soda. ? Avoid alcohol. ? Avoid spicy or fatty foods. General instructions ? Take ynyw-fcn-xlgcjvm and prescription medicines only as told by your health care provider. ? Use a cool mist humidifier to add humidity to the air in your home. This can make it easier to breathe. ? When using a cool mist humidifier, clean it daily. Empty the water and replace it with clean water. ? Cover your mouth and nose when you cough or sneeze. ? Wash your hands with soap and water often and for at least 20 seconds, especially after you cough or sneeze. If soap and water are not available, use alcohol-based hand head of measurement & insights. ? Keep all follow-up visits. This is important. How is this prevented? ? Get an annual flu shot. This is usually available in late summer, fall, or winter. Ask your health care provider when you should get your flu shot. ? Avoid contact with people who are sick during cold and flu season. This is generally fall and winter. Contact a health care provider if: ? You develop new symptoms. ? You have: ? Chest pain. ? Diarrhea. ? A fever. ? Your cough gets worse. ? You produce more mucus. ? You feel nauseous or you vomit. Get help right away if you: ? Develop shortness of breath or have difficulty breathing. ? Have skin or nails that turn a bluish color. ? Have severe pain or stiffness in your neck. ? Deve (more content not included)... Normal [facility] ED Patient Summaryon 024 ED Patient Summary [place] [address] Patient Discharge Instructions Person Information Name: RODRIGUEZ MARY Cabrera Age: 38 Years Arrival Date: 09/29/2023 19:29:13 Discharge Diagnosis: Influenza Primary Care Physician: NONE, XXXX Provider Information Primary Provider: Yonathan Melchor DO Advanced Sql Dba:None The exam and treatment you received in the Emergency Department were for an urgent problem and are not intended as complete care. It is important that you follow up with a doctor, nurse practitioner, or physician?s medical lab assistant for ongoing care. If your symptoms become worse or you do not improve as expected and you are unable to reach your usual health care provider, you should return to the Emergency Department. We are available 24 hours a day. MARY RODRIGUEZ has been given the following list of patient education materials, prescriptions and follow-up instructions: Follow-up Instructions: With: Address: When: [facility], [address] [place] [address] Business (1) In 3 days 10/02/2023 In the event that this physician does not participate in your insurance network, please consult with your insurance company to find a nearby participating provider. Patient Education Materials: Influenza, Adult A MESSAGE TO ALL PATIENTS REGARDING OPIOIDS PRESCRIPTION OPIOIDS: WHAT YOU NEED TO KNOW Prescription opioids can be used to help relieve kbyjqqvm-cj-pymoks pain and are often prescribed following a surgery or injury, or for certain health conditions. These medications can be an important part of the treatment but also come with serious risks. It is important to work with your healthcare provider to make sure you are getting the safest, most effective care. WHAT ARE THE RISKS AND SIDE EFFECTS OF OPIOID USE? Prescription opioids carry serious risks of addiction and overdose, especially with prolonged use. An opioid overdose, often marked by slowed breathing, can cause sudden . The use of prescription opioids can have a number of side effects as well, even when taken as directed: ? Tolerance?meaning you might need to take more of the medication for the same pain relief ? Physical dependence?meaning you have symptoms of withdrawal when a medication is stopped ? Increased sensitivity to pain ? Constipation ? Nausea, vomiting, and dry mouth ? Sleepiness and dizziness ? Confusion ? Depression ? Low levels of testosterone that can result in lower sex drive, energy, and strength ? Itching and sweating RISKS ARE GREATER WITH: ? History of drug misuse, substance use disorder, or overdose ? Mental health conditions (such as depression or anxiety) ? Sleep apnea ? Older age (65 years and older) ? Avoid alcohol while taking prescription opioids. Also, unless specifically advised by your health care provider, medications to avoid include: ? Benzodiazepines (such as Xanax or Valium) ? Muscle relaxants (such as Soma or Flexeril) ? Hypnotics (such as Ambien or Lunesta) ? Other prescription opioids KNOW YOUR OPTIONS Talk to your health care provider about ways to manage your pain that don?t involve prescription opioids. Some of these options may actually work better and have fewer risks and side effects. Options may include: ? Pain relievers such as acetaminophen, ibuprofen, and naproxen ? Some medication that are also used for depression or seizures ? Physical therapy and exercise ? Cognitive behavioral therapy, a psychological, goal-directed approach, in which patients learn how to modify physical, behavioral, and emotional triggers of pain and stress. IF YOU ARE PRESCRIBED OPIOIDS FOR PAIN: ? Never take opioids in greater amounts or more often than prescribed. ? Follow up with your primary health care provider. o Work together to create a plan on how to manage your pain. o Talk about ways to help manage your pain that don?t involve prescription opioids. o Talk about any and all concerns and side effects. ? Help prevent misuse and abuse o Never sell or share prescription opioids. o Never use another person?s prescription opioids. ? Store prescription opioids in a secure place and out of reach of others (this may include visitors, children, friends, and family). ? Safely dispose of unused prescription opioids: Find your community drug take-back program or your pharmacy mail-back program, or flush them down the toilet, following guidance from the Food and Drug Administration (www.fda.gov/Drugs/ ResourcesForYou). ? Visit www.cdc.gov/drugove rdose to learn about the risks of opioids abuse and overdose. ? If you believe you may be struggling with addiction, tell your health care professionals and ask for guidance or call [facility]?S National Helpline at 4-487-204-BOOB. c Source: Department of (more content not included)... Normal [facility] Influenza A&B Agon 4 Influenzae A Ag Negative Normal Negative [facility] Comment on above: Performed By: #### 1 [id number] ####[facility] [address] [place] [address] Influenzae B Ag Positive Abnormal Negative [facility] Comment on above: Result Comment: Test sensitivity and specificity vary for age group, specimen type, antigen types, and prevalence of disease. Test results must be evaluated in conjunction with other clinical data available to the physician. Individuals who received nasally administered Influenza A vaccine may have positive test results up to 3 days after vaccination. Performed By: #### 1 [id number], [id number] ####[facility] [address] [place] [address] MICRO OTHER TESTSOrdered By: Yang Ascencio on 09-29-2023 Influenzae A Ag Negative (09/29/23 8:10 PM) Normal Negative [facility] [address] Influenzae B Ag Positive 1 *ABN* (09/29/23 8:10 PM) Invalid Interpretation Code Negative [facility] Comment on above: Interpretive Data: T est sensitivity and specificity vary for age group, specimen type, antigen types, and prevalence of disease. Test results must be evaluated in conjunction with other clinical data available to the physician. Individuals who received nasally administered Influenza A vaccine may have positive test results up to 3 days after vaccination. Rapid COV Int NEG Ctl Pass (09/29/23 8:10 PM) Normal [facility] S[facility] Rapid COV Int POS Ctl Pass (09/29/23 8:10 PM) Normal [facility] SARS-CoV+SARS-CoV-2 (COVID-19) Ag IA.rapid Ql (Resp) Not Detected 2 (09/29/23 8:10 PM) Normal Not Detected [facility] Comment on above: Interpretive Data: T he [employer] Veritor System for Rapid Detection of SARS-CoV-2 is a chromatographic digital immunoassay intended for the direct and qualitative detection of SARS-CoV-2 nucleocapsid antigens in nasal swabs from individuals who are suspected of COVID-19 by their healthcare provider within the first five days of the onset of symptoms. Negative results should be treated as presumptive, do not rule out SARS-CoV-2 infection and should not be used as the sole basis for treatment or patient management decisions, including infection control decisions. Negative results should be considered in the context of a patient s recent exposures, history and the presence of clinical signs and symptoms consistent with COVID-19, and confirmed with a molecular assay, if necessary, for patient management. For in vitro diagnostic use. In the [place], only for use under an Emergency Use Authorization. In the [place], this test has not been FDA cleared or approved; this test has been authorized by FDA under an EUA for use by authorized laboratories; use by laboratories certified under the CLIA, 42 U.S.C. 263a, that meet requirements to perform moderate, high, or waived complexity tests and at the Point of Care (POC), i.e., in patient care settings operating under a CLIA Certificate of Waiver, Certificate of Compliance, or Certificate of Accreditation. This test has been authorized only for the detection of proteins from SARS-CoV-2, not for any other viruses or pathogens; and, in the [facility], this test is only authorized for the duration of the declaration that circumstances exist justifying the authorization of emergency use of in vitro diagnostics for detection and/or diagnosis of the virus that causes COVID-19 under Section 564(b)(1) of the Act, 21 U.S.C. 360bbb-3(b)(1), unless the authorization is terminated or revoked sooner. Prescriptions/Work Noteson 0 09-29-2023 Prescriptions/Work Notes [id number]#1.00TIFF Normal [facility] Rapid COVID Antigen ([facility])on 09-29-2023 Rapid COV Int NEG Ctl Pass Normal [facility] Comment on above: Performed By: #### 1 [id number], [id number] ####[address] [place] [address] Rapid COV Int POS Ctl Pass Normal [facility] Comment on above: Performed By: #### 1 [id number], [id number] ####[address] [address] SARS-CoV+SARS-CoV-2 (COVID-19) Ag IA.rapid Ql (Resp) Not detected Normal Not Detected [facility] Comment on above: Result Comment: The [employer] System for Rapid Detection of SARS-CoV-2 is a chromatographic digital immunoassay intended for the direct and qualitative detection of SARS-CoV-2 nucleocapsid antigens in nasal swabs from individuals who are suspected of COVID-19 by their healthcare provider within the first five days of the onset of symptoms. Negative results should be treated as presumptive, do not rule out SARS-CoV-2 infection and should not be used as the sole basis for treatment or patient management decisions, including infection control decisions. Negative results should be considered in the context of a patient?s recent exposures, history and the presence of clinical signs and symptoms consistent with COVID-19, and confirmed with a molecular assay, if necessary, for patient management. For in vitro diagnostic use. In the [facility], only for use under an Emergency Use Authorization. In the [place], this test has not been FDA cleared or approved; this test has been authorized by FDA under an EUA for use by authorized laboratories; use by laboratories certified under the CLIA, 42 U.S.C. ?263a, that meet requirements to perform moderate, high, or waived complexity tests and at the Point of Care (POC), i.e., in patient care settings operating under a CLIA Certificate of Waiver, Certificate of Compliance, or Certificate of Accreditation. This test has been authorized only for the detection of proteins from SARS-CoV-2, not for any other viruses or pathogens; and, in the [place], this test is only authorized for the duration of the declaration that circumstances exist justifying the authorization of emergency use of in vitro diagnostics for detection and/or diagnosis of the virus that causes COVID-19 under Section 564(b)(1) of the Act, 21 U.S.C. ? 360bbb-3(b)(1), unless the authorization is terminated or revoked sooner. Performed By: #### 1 [id number], [id number] ####[facility] [address] [place] [address] Basic Metab w/rfx MGon 05-05 Potassium [Moles/Vol] 3.2 mmol/L Low 3.7-5.3 [facility] Comment on above: Performed By: #### C DP BMPX, MG #### [facility] [address] [place], [place] [id number] Oyster Culler: Monico Siddiqui MD (cont.) [facility] Comment on above: Result Comment: Aver age GFR for 30-39 years old: 107 mL/min/1.73sq m Chronic Kidney Disease: <60 mL/min/1.73sq m Kidney failure: <15 mL/min/1.73sq m eGFR calculated using average adult body mass. Additional eGFR calculator available at: http://www.ComCrowd.MobileReactor/multiple_crcl_2012.htm Performed By: #### C DP BMPX, MG #### [facility] [address] [place] [address] Oyster Culler: Monico Siddiqui MD Anion gap [Moles/Vol] 11 mmol/L Normal 9-17 [facility] Comment on above: Performed By: #### C DP, BMPX, MG #### [facility] [address] [place], [place] [id number] Oyster Culler: Monico Siddiqui MD BUN/CRE Ratio 10 Normal 9-20 [facility] Comment on above: Performed By: #### C DP, BMPX, MG #### [facility] [address] [place] [address] Oyster Culler: Monico Siddiqui MD Calcium [Mass/Vol] 9.6 mg/dL Normal 8.6-10.4 [facility] Comment on above: Performed By: #### C DP, BMPX, MG #### [facility] [address] [place] [address] Oyster Culler: Monico Siddiqui MD Chloride [Moles/Vol] 102 mmol/L Normal 98-107 [facility] Comment on above: Performed By: #### C DP, BMPX, MG #### [facility] [address] [place] [address] Oyster Culler: Monico Siddiqui MD CO2 [Moles/Vol] 24 mmol/L Normal 20-31 [facility] Comment on above: Performed By: #### C DP, BMPX, MG #### [facility] [address], [place] [id number] Oyster Culler: Monico Siddiqui MD Creatinine [Mass/Vol] 0.61 mg/dL Normal 0.50-0.90 [facility] Comment on above: Performed By: #### C DP, BMPX, MG #### [facility] [address], [place] [id number] Oyster Culler: Monico Siddiqui MD GFR, Amer >60 Normal >60 [facility] Comment on above: Performed By: #### C DP, BMPX, MG #### [facility] [address], [place] [id number] Oyster Culler: Monioc Siddiqui MD GFR,non Amer >60 Normal >60 [facility] Comment on above: Performed By: #### C DP, BMPX, MG #### [facility] [address], [place] [id number] Oyster Culler: Monico Siddiqui MD Glucose [Mass/Vol] 132 mg/dL High 70-99 [facility] Comment on above: Performed By: #### C DP, BMPX, MG #### [facility] [address], [place] [id number] Oyster Culler: Monico Siddiqui MD Sodium [Moles/Vol] 137 mmol/L Normal 135-144 [facility] Comment on above: Performed By: #### C DP, BMPX, MG #### [facility] [address] [place] [address] Oyster Culler: Monico Siddiqui MD Urea nitrogen [Mass/Vol] 6 mg/dL Normal 6-20 [facility] Comment on above: Performed By: #### C DP, BMPX, MG #### [facility] [address], [place] [id number] Oyster Culler: Monico Siddiqui MD Staging: NOT REPORTED Normal [facility] Comment on above: Performed By: #### C DP, BMPX, MG #### [facility] [address], [place] [id number] Oyster Culler: Monico Siddiqui MD Basic Metabolic Panel w/ Ref hattie to MGon 05-05-2020 Anion gap [Moles/Vol] 11 mmol/L 9 - 17 mmol/L [facility], [place] Bun/Cre Ratio 10 [place] Calcium [Mass/Vol] 9.6 mg/dL 8.6 - 10. 4 mg/dL [place] Chloride [Moles/Vol] 102 mmol/L 98 - 10 7 mmol/L [place] CO2 [Moles/Vol] 24 mmol/L 20 - 31 mmol/L [place] Creatinine [Mass/Vol] 0.61 mg/dL 0.5 - 0.9 mg/dL [place] GFR >60 >60 mL/min [place] GFR Non- >60 >60 mL/min [place] GFR/1.73 sq M predicted among non-blacks MDRD (S/P/Bld) [Vol rate/Area] [place] Comment on above: Average GFR for 30-3 9 years old: 107 mL/min/1.73sq m Chronic Kidney Disease: <60 mL/min/1.73sq m Kidney failure: <15 mL/min/1.73sq m eGFR calculated using average adult body mass. Additional eGFR calculator available at: http://www.Tomfoolery/multiple_crcl_2012.htm GFR/1.73 sq M predicted among non-blacks MDRD (S/P/Bld) [Vol rate/Area] NOT REPORTED [place] Glucose [Mass/Vol] 132 mg/dL High 70 - 99 mg/dL [place] Interpretation and review of laboratory results Abnormal [place] Potassium [Moles/Vol] 3.2 mmol/L Low 3.7 - 5.3 mmol/L [place] Sodium [Moles/Vol] 137 mmol/L 135 - 144 mmol/L [place] Urea nitrogen [Mass/Vol] 6 mg/dL 6 - 20 mg/dL [place] CBC Auto Differentialon 04-21 Basophils (Bld) [#/Vol] 0.00 10*3/uL [place] Basophils/100 WBC (Bld) 0 % 0 - 2 % [place] Differential Type YES [place] Eosinophils (Bld) [#/Vol] 0.10 10*3/uL [place] Eosinophils/100 WBC (Bld) 0 % 0 - 5 % [place] Erythrocyte distribution width (RBC) [Ratio] 14.7 % 12.1 - 15.2 % [place] Hematocrit (Bld) [Volume fraction] 38.6 % 36 - 46 % [place] Hemoglobin (Bld) [Mass/Vol] 13.1 g/dL 12 - 16 g/dL [place] Interpretation and review of laboratory results Abnormal [place] Lymphocytes (Bld) [#/Vol] 3.20 10*3/uL [place] Lymphocytes/100 WBC (Bld) 27 % 15 - 40 % [place] MCH (RBC) [Entitic mass] 29.1 pg 26 - 34 pg [place] MCHC (RBC) [Mass/Vol] 33.9 g/dL 31 - 37 g/dL [place] MCV (RBC) [Entitic vol] 85.9 fL 80 - 100 fL [place] Monocytes (Bld) [#/Vol] 0.80 10*3/uL [place] Monocytes/100 WBC (Bld) 7 % 4 - 8 % [place] Platelet mean volume (Bld) [Entitic vol] NOT REPORTED 6 - 12 fL [place] Platelets (Bld) [#/Vol] NOT REPORTED [place] Platelets (Bld) [#/Vol] 301 10*3/uL [place] RBC (Bld) [#/Vol] 4.49 10*6/uL 4 - 5.2 m/uL [place] RBC morphology finding Nom (Bld) NOT REPORTED [place] Segmented neutrophils/100 WBC (Bld) 66 % 47 - 75 % [place] Segs Absolute 7.50 [place] WBC (Bld) [#/Vol] NOT REPORTED per 100 WBC [place] WBC (Bld) [#/Vol] 11.5 10*3/uL [place] WBC Morphology NOT REPORTED [place] CBC with Diffon 05-05-2020 Abs. Basophil 0.00 k/uL Normal 0.0-0.2 [facility] Comment on above: Performed By: #### C DP, BMPX, MG #### [facility] [address] [place] [address] Oyster Culler: Monico Siddiqui MD Abs.Neutrophil (Seg) 7.50 k/uL High 2.5-7.0 [facility] Comment on above: Performed By: #### C DP, BMPX, MG #### [facility] [address] [place] [address] Oyster Culler: Monico Siddiqui MD Auto Diff Performed YES Normal [facility] Comment on above: Performed By: #### C DP, BMPX, MG #### [facility] [address] [place] [address] Oyster Culler: Monico Siddiqui MD Basophils/100 WBC (Bld) 0 % Normal 0-2 [facility] Comment on above: Performed By: #### C DP, BMPX, MG #### [facility] [address] [place] [id number] Oyster Culler: Monico Siddiqui MD Eosinophils (Bld) [#/Vol] 0.10 10*3/uL Normal 0.0-0.4 [facility] Comment on above: Performed By: #### C DP, BMPX, MG #### [facility] [address] [place] [id number] Oyster Culler: Monico Siddiqui MD Eosinophils/100 WBC (Bld) 0 % Normal 0-5 [facility] Comment on above: Performed By: #### C DP, BMPX, MG #### [facility] [address] [place] [id number] Oyster Culler: Monico Siddiqui MD Erythrocyte distribution width (RBC) [Ratio] 14.7 % Normal 12.1-15.2 [facility] Comment on above: Performed By: #### C DP, BMPX, MG #### [facility] [address] [place] [address] Oyster Culler: Monico Siddiqui MD Hematocrit (Bld) [Volume fraction] 38.6 % Normal 36-46 [facility] Comment on above: Performed By: #### C DP, BMPX, MG #### [facility] [address] [place] [id number] Oyster Culler: Monico Siddiqui MD Hemoglobin (Bld) [Mass/Vol] 13.1 g/dL Normal 12.0-16.0 [facility] Comment on above: Performed By: #### C DP, BMPX, MG #### [facility] [address] [place] [address] Oyster Culler: Monico Siddiqui MD Lymphocytes (Bld) [#/Vol] 3.20 10*3/uL Normal 1.0-4.8 [facility] Comment on above: Performed By: #### C DP, BMPX, MG #### [facility] [address] [place] [id number] Oyster Culler: Monico Siddiqui MD Lymphocytes/100 WBC (Bld) 27 % Normal 15-40 [facility] Comment on above: Performed By: #### C DP, BMPX, MG #### [facility] [address] [place] [address] Oyster Culler: Monico Siddiqui MD MCH (RBC) [Entitic mass] 29.1 pg Normal 26-34 [facility] Comment on above: Performed By: #### C DP, BMPX, MG #### [facility] [address] [place] [id number] Oyster Culler: Monico Siddiqui MD MCHC (RBC) [Mass/Vol] 33.9 g/dL Normal 31-37 [facility] Comment on above: Performed By: #### C DP, BMPX, MG #### [facility] [address], [place] [id number] Oyster Culler: Monico Siddiqui MD MCV (RBC) [Entitic vol] 85.9 fL Normal 80-100 [facility] Comment on above: Performed By: #### C DP, BMPX, MG #### [facility] [address] [place] [address] [phone] Oyster Culler: Monico Siddiqui MD Monocytes (Bld) [#/Vol] 0.80 10*3/uL Normal 0.0-1.0 [facility] Comment on above: Performed By: #### C DP, BMPX, MG #### [facility] [address] [place] [address] [phone] Oyster Culler: Monico Siddiqui MD Monocytes/100 WBC (Bld) 7 % Normal 4-8 [facility] Comment on above: Performed By: #### C DP, BMPX, MG #### [facility] [address] [place] [address] [phone] Oyster Culler: Monico Siddiqui MD Neutrophil (Seg) 66 % Normal 47-75 [facility] Comment on above: Performed By: #### C DP, BMPX, MG #### [facility] [address] [place] [address] [phone] Oyster Culler: Monico Siddiqui MD Platelets (Bld) [#/Vol] 301 10*3/uL Normal 140-450 [facility] Comment on above: Performed By: #### C DP, BMPX, MG #### [facility] [address] [place] [address] ([phone] Oyster Culler: Monico Siddiqui MD RBC (Bld) [#/Vol] 4.49 10*6/uL Normal 4.0-5.2 [facility] Comment on above: Performed By: #### C DP, BMPX, MG #### [facility] [address] [place] [address] Oyster Culler: Monico Siddiqui MD WBC (Bld) [#/Vol] 11.5 10*3/uL High 3.5-11.0 [facility] Comment on above: Performed By: #### C DP, BMPX, MG #### [facility] [address] [place], [place] [id number] Oyster Culler: Monico Siddiqui MD Abs.Imm.Granulocyte NOT REPORTED Normal 0.00-0.30 [facility] Comment on above: Performed By: #### C DP, BMPX, MG #### [facility] [address] [place] [address] Oyster Culler: Monico Siddiqui MD Immature granulocytes (Bld) [#/Vol] NOT REPORTED Normal 0 [facility] Comment on above: Performed By: #### C DP, BMPX, MG #### [facility] [address] [place] [address] Oyster Culler: Monico Siddiqui MD NRBC Automated NOT REPORTED Normal [facility] Comment on above: Performed By: #### C DP, BMPX, MG #### [facility] [address] [place] [id number] Oyster Culler: Monico Siddiqui MD Platelet mean volume (Bld) [Entitic vol] NOT REPORTED Normal 6.0-12.0 [facility] Comment on above: Performed By: #### C DP, BMPX, MG #### [facility] [address] [place] [id number] Oyster Culler: Monico Siddiqui MD Platelets (Bld) [#/Vol] NOT REPORTED Normal [facility] Comment on above: Performed By: #### C DP, BMPX, MG #### [facility] [address] [place], [place] [id number] Oyster Culler: Monico Siddiqui MD RBC morphology finding Nom (Bld) NOT REPORTED Normal [facility] Comment on above: Performed By: #### C DP, BMPX, MG #### [facility] [address] [place] [address] Oyster Culler: Monico Siddiqui MD WBC Morphology NOT REPORTED Normal [facility] Comment on above: Performed By: #### C DP, BMPX, MG #### [facility] [address] [place] [address] Oyster Culler: Monico Siddiqui MD Magnesiumon 05-05-2020 Magnesium [Mass/Vol] 1.9 mg/dL Normal 1.6-2.6 [facility] Comment on above: Performed By: #### C DP, BMPX, MG #### [facility] [address] [place] [address] Oyster Culler: Monico Siddiqui MD Magnesium [Mass/Vol] 1.9 mg/dL 1.6 - 2 .6 mg/dL [place] Otheron 05-05-2020 Immature granulocytes (Bld) [#/Vol] NOT REPORTED [place] SPECIMEN REJECTIONon 020 Ordered Test CDP, BMPX [place], [place] Reason for Rejection Unable to perform testing: Specimen hemolyzed. [place] Specimen source Nom (Unsp spec) BLOOD [place] - NOT REPORTED [place] Specimen Rejectionon 020 Reason for rejection Unable to perform testing: Specimen hemolyzed. Normal [facility] Comment on above: Performed By: #### R EJEC #### [facility] [address] [place] [address] Oyster Culler: Monico Siddiqui MD Source of sample BLOOD Normal [facility] Comment on above: Performed By: #### R EJEC #### [facility] [address] [place] [address] Oyster Culler: Monico Siddiqui MD Test ordered CDP, BMPX Normal [facility] Comment on above: Performed By: #### R EJEC #### [facility] [address] [place] [address] Oyster Culler: Monico Siddiqui MD ----- NOT REPORTED Normal [facility] Comment on above: Performed By: #### R EJEC #### [facility] [address] [place] [address] Oyster Culler: Monico Siddiqui MD Vital Signs Date Time Vital Sign Value Performing Clinician Janei nati 10-22-2023 15:30-0500 Diastolic blood pressure 49 mm[Hg] Hermelindo Saleem [facility] 10-22-2023 15:30-0500 Heart rate 78 /min Hermelindo Saleem [facility] 10-22-2023 15:30-0500 Mean blood pressure 69 mm[Hg] Hermelindo Saleem [facility] 10-22-2023 15:30-0500 Respiratory rate 16 /min Hermelindo Saleem [facility] 10-22-2023 15:30-0500 SaO2% (BldA) [Mass fraction] 99 % Hermelindo Saleem [facility] 10-22-2023 15:30-0500 Systolic blood pressure 110 mm[Hg] Hermelindo Saleem [facility] 10-22-2023 15:00-0500 Heart rate 67 /min Hermelindo Saleem [facility] 10-22-2023 14:30-0500 Diastolic blood pressure 57 mm[Hg] Hermelindo Saleem [facility] 10-22-2023 14:30-0500 Heart rate 81 /min Hermelindo Saleem [facility] 10-22-2023 14:30-0500 Mean blood pressure 80 mm[Hg] Hermelindo Saleem [facility] 10-22-2023 14:30-0500 Respiratory rate 18 /min Hermelindo Monge [facility] 10-22-2023 14:30-0500 SaO2% (BldA) [Mass fraction] 100 % Hermelindo Monge [facility] 10-22-2023 14:30-0500 Systolic blood pressure 125 mm[Hg] Hermelindo Monge [facility] 10-22-2023 14:00-0500 Diastolic blood pressure 56 mm[Hg] Hermelindo Monge [facility] 10-22-2023 14:00-0500 Mean blood pressure 79 mm[Hg] Hermelindo Monge [facility] 10-22-2023 09:04-0500 Body temperature 97.88 [degF] Hermelindo Monge [facility] 10-22-2023 09:04-0500 Heart rate 74 /min Hermelindo Monge [facility] 09-29-2023 21:25-0500 Body temperature 102.2 [degF] Yonathan Jill [facility] 09-29-2023 21:25-0500 Diastolic blood pressure 83 mm[Hg] Yonathan Jill [facility] 09-29-2023 21:25-0500 Heart rate 102 /min Yonathan Jill [facility] 09-29-2023 21:25-0500 Mean blood pressure 106 mm[Hg] Yonathan Jill [facility] 09-29-2023 21:25-0500 Respiratory rate 16 /min Yonathan Jill [facility] 09-29-2023 21:25-0500 SaO2% (BldA) [Mass fraction] 98 % Yonathan Jill [facility] 09-29-2023 21:25-0500 Systolic blood pressure 152 mm[Hg] Yonathan Jill [facility] 09-29-2023 19:51-0500 Body temperature 100.4 [degF] YonathanKeen IO [facility] 09-29-2023 19:51-0500 Diastolic blood pressure 88 mm[Hg] Yonathan Jill [facility] 09-29-2023 19:51-0500 Heart rate 115 /min YonathanKeen IO [facility] 09-29-2023 19:51-0500 Respiratory rate 17 /min YonathanKeen IO [facility] 09-29-2023 19:51-0500 SaO2% (BldA) [Mass fraction] 98 % YonathanKeen IO [facility] 09-29-2023 19:51-0500 Systolic blood pressure 140 mm[Hg] YonathanKeen IO [facility] 05-05-2020 18:17-0400 BMI (Body Mass Index) 38.08 kg/m2 [facility], [place] 05-05-2020 18:17-0400 Body Temperature 98.49 [degF] [facility], [place] 05-05-2020 18:17-0400 Body weight 88.45 kg [facility], [place] 05-05-2020 18:17-0400 BP Diastolic 80 mm[Hg] [facility] 05-05-2020 18:17-0400 BP Systolic 141 mm[Hg] [facility] 05-05-2020 18:17-0400 Height 152.4 cm [facility], [place] 05-05-2020 18:17-0400 Pulse (Heart Rate) 81 /min Marlen Colon [facility], [place] 05-05-2020 18:17-0400 Pulse Oximetry 100 % [facility], [place] 05-05-2020 18:17-0400 Respiratory Rate 15 /min Marlen Avila [facility], [place] Encounters Encounter Date Encounter Type Care Provider Facility Start: 10-22-2023 End: 10-22-2023 Emergency department patient visit Hermelindo Monge Facility:[facility] Start: 10-22-2023 End: 10-22-2023 Emergency department patient visit Hermelindo Monge [facility] Start: 09-29-2023 End: 09-29-2023 Emergency department patient visit Yonathan Melchor Facility:[facility] Start: 09-29-2023 End: 09-29-2023 Emergency department patient visit Yonathan Melchor [facility] Start: 05-05-2020 End: 05-05-2020 Emergency department patient visit JANAK Elaine [facility] Start: 05-05-2020 End: 05-05-2020 Emergency department patient visit Marlen Avila Work Phone: [facility] ED Comment on above: Nonintractable heada guzman, unspecified chronicity pattern, unspecified headache type (Primary Dx); General weakness Procedures Date Procedure Procedure Detail Performing Clinician Start: 07-08-2020 Dilation and curetta ge of uterus Yonathan Jill Start: 05-05-2020 Assay of magnesium IVANIA HEW CLINGMAN Start: 05-05-2020 Blood count complete auto&auto difrntl wbc JANAK FRENCHDanika Start: 05-05-2020 Comprehensive metabo lic panel JANAK FRENCHDanika Start: 05-05-2020 Drug tst prsmv instr mnt chem analyzers pr date JANAK FRENCHDanika Start: 05-05-2020 INSERT PERIPHERAL IV MA TTHEW CLINGMAN Start: 05-05-2020 Assay of magnesium Kai Avila Work Phone: Start: 05-05-2020 BASIC METABOLIC PANE L W/ REFLEX TO MG FOR LOW K Marlen Avila Work Phone: Start: 05-05-2020 Blood count complete auto&auto difrntl wbc Marlen Avila Work Phone: Start: 05-05-2020 SPECIMEN REJECTION Chri juan Avila Work Phone: Dilation and curetta ge of uterus Yonathan Melchor None (qualifier value) Yonathan Melchor Plan of Treatment Date Care Activity Detail Author Start: 07-22-2024 DTaP/Tdap/Td vaccine (2 - Td) DTaP/Tdap/Td vaccine (2 - Td) [place] Start: 04-21-2020 Influenza vaccination Flu vaccine (# 1) [place] Start: 06-27-2019 Screening for malign ant neoplasm of cervix Cervical cancer screen [place] Start: 1986 Varicella vaccine (1 of 2 - 2-dose childhood series) Varicella vaccine (1 of 2 - 2-dose childhood series) [place] Immunizations Immunization Date Immunization Notes Care Provider Nacho stinson 07-18-2021 influenza, seasonal, injectable Yonathan Melchor [facility] Comment on above: Reason for Medicatio n: Prophylaxis 07-18-2021 tetanus toxoid, redu olga diphtheria toxoid, and acellular pertussis vaccine, adsorbed Yonathan Jill [facility] Comment on above: Reason for Medicatio n: Other (see comment) 07-22-2014 influenza virus vacc ine, unspecified formulation [place] 07-22-2014 tetanus toxoid, redu olga diphtheria toxoid, and acellular pertussis vaccine, adsorbed [place], [place] 06-21-2014 pneumococcal polysaccharide vaccine, 23 valent [place] 12-30-2013 tuberculin skin test ; purified protein derivative solution, intradermal [place] 12-08-2011 tetanus toxoid, redu olga diphtheria toxoid, and acellular pertussis vaccine, adsorbed Yonathan Melchor [facility] Comment on above: Reason for Medicatio n: Other (see comment) Result Comment: vacc inne Payers Date Payer Category Payer Unknown [id number] 2023 Unknown [id number] 1985 Unknown [id number] 1985 Unknown [id number] Social History Date Type Detail Facility Start: 05-05-2020 End: 09-08-2020 Tobacco smoking status NHIS Never smoker [facility] Start: 05-05-2020 Tobacco use and exposure Never used [place] Start: 05-05-2020 Alcohol intake Current non-dr automobile travel [employer] counselor of alcohol (finding) [place] Sex Assigned At [place] on file [place] Exposure to SARS-CoV -2 (event) Not sure [place] Tobacco smoking status Never [facility] Sex Assigned At Female [facility] Functional Status Date Assessment Result Facility 10-22-2023 Functional Status N/A [facility] 09-29-2023 Functional Status N/A [facility] Clinical Note 10-25-2023 Note Date & Type Note Facility 10-25-2023 Note Microbiology PROCEDURE: Cervical Culture [R1] SOURCE: Cerv BODY SITE: COLLECTED DATE/TIME: 10/22/2023 15:43 EST RECEIVED DATE/TIME: 10/22/2023 15:48 EST START DATE/TIME: 10/22/2023 15:49 EST FREE TEXT SOURCE: Saleem FLOWERS, Hermelindo Monge MD, Hermelindo FINAL REPORTS Final Report [] Verified Date/Time: 10/25/2023 10:37 EST Scant growth of Beta Hemolytic Streptococci, non group A or B Presumptive isolated. Penicillin is the drug of choice for Beta Hemolytic Streptococci Isolates. Routine susceptibility testing on Beta Hemolytic Streptococcus isolates is no longer performed. Susceptibilities will continue to be performed on Isolates from sterile body fluids and serious wound infections. 1+ Normal vaginal [place] isolated STAINS Wet Prep Report [] Verified Date/Time: 10/22/2023 15:59 EST No Trichomonas observed. No clue cells present Performing Locations R1: This test was performed at: [facility], [address] [place] [address], [id number] [phone] , [facility] Comment on above: Performed By: #### 1 [id number] ####[facility] [id number] [place] [address] Hospital Discharge instructions 10-22-2023 Note Date & Type Note Facility 10-22-2023 Hospital Discharg e instructions Patient Education 10/22/2023 15:59:41 Miscarriage, Cwke-tc-Fpos(Mauritanian) Aborto espont santa Miscarriage El aborto espont santa es la p rdida de un embarazo antes de la semana 20. A veces, el embarazo termina antes de que la patrica sepa que est embarazada. Si pierde un embarazo, hable con wilcox m dico sobre: Las preguntas que tenga sobre la p rdida del beb . C mo atravesar el duelo. Planes para un futuro embarazo. Cu les son las causas? Muchas veces, se desconoce la causa de esta afecci n. Qu incrementa el riesgo? Estas cosas pueden hacer que leonardo embarazada sea m s propensa a perder un embarazo: Ciertos problemas m dicos Trastornos que afectan las hormonas, esa los siguientes: ?Enfermedad tiroidea. ?S ndrome del ovario poliqu stico. Diabetes. Leonardo enfermedad que provoca que el sistema del cuerpo que combate las enfermedades se ataque a s mismo por error. Infecciones. Problemas de sangrado. Tener mucho sobrepeso. Factores de estilo de bernard Consumir productos que contienen nicotina o tabaco. Estar cerca de humo de tabaco. Beber alcohol. Consumir serge cafe na. Consumir drogas. Problemas relacionados con las partes o los rganos genitales Sufrir la apertura y el borrado del [place] uterino antes de la fecha estimada de parto. El [place] uterino es la parte m s baja del tero. Tener s ndrome de Bertha, que deriva en: ?Cicatrices en el tero. ?Forma anormal del tero. Tumores (fibromas) en el tero. Problemas en el cuerpo que est n presentes desde el nacimiento. Infecci n en el [place] uterino o el tero. Antecedentes personales o de spencer Lesiones. Deirdre perdido un embarazo antes. Ser sarah de 16 a os o mayor de 35 a os de edad. Estar cerca de leonardo sustancia nociva, esa la radiaci n. Que haya plomo u otros metales pesados en: ?Cosas que come o modesto. ?El aire que la rodea. Nicole ciertos medicamentos. Cu les son los signos o s ntomas? Jourdan o manchas de jourdan procedentes de la vagina. Tambi n puede tener c licos o dolor. Dolor o c licos en la arthur o en la parte baja de la espalda. [place] de l quido o tejido por la vagina. C mo se trata? A veces, el tratamiento no es necesario. Si necesita tratamiento, es posible que se la trate con: Un procedimiento para abrir m s el [place] uterino y sacar tejido del tero. Medicamentos. Tj vez le den leonardo inyecci n de un medicamento llamado inmunoglobulina Jose A(D). Siga estas instrucciones en wilcox casa: Medicamentos Use los medicamentos de venta michael y los recetados solamente esa se lo haya indicado el m dico. Si le recetaron un antibi gita, t graham esa se lo haya indicado el m dico. No deje de tomarlo aunque comience a sentirse mejor. Actividad Perri reposo esa se lo haya indicado el m dico. Preg ntele al m dico qu actividades son seguras para usted. Pida ayuda para realizar las tareas de la casa delmy charlee tiempo. Instrucciones generales Observe cu nto tejido sale de la vagina. Observe el demarco o de cualquier co gulo de jourdan que salga de la vagina. No tenga relaciones sexuales ni se perri duchas vaginales hasta que el m dico la autorice. No se ponga cosas, esa tampones, en la vagina hasta que el m dico la autorice. Para ayudarlos a usted y a wilcox tiffanie con el duelo: ?Hable con el m dico. ?Vaya al [facility] logo. Cuando est lista, hable con el m dico sobre: ?Las cosas que puede hacer por wilcox spencer. ?C mo puede estar harrison si queda embarazada de nuevo. Cumpla con todas las visitas de seguimiento. D nde buscar carlos louie informaci n The [place] [employer] ([employer] Ob[employer]ras y Ginec logos): acog.org U.S. Department of Health and Human Services, Office on Women s Health (Departamento de Spencer y Servicios Humanos de los [place] Unidos, Oficina de Spencer de la Patrica): hrsa.gov/txbznl-tzffyr-kllwlf Comun quese con un m dico si: Tiene fiebre o escalofr os. Le sale l quido con mal olor de la vagina. Aumenta el sangrado. Le salen co gulos de jourdan o tejido de la vagina. Solicite ayuda de inmediato si: Tiene espasmos o dolor muy intensos en el abdomen o en la espalda. Llena m s de 2 ap sitos sanitarios grandes en leonardo hora delmy m s de 2 horas. Se siente d shaji o mareada. Se desmaya. Se siente alexandr y tiene pensamientos tristes gran parte del tiempo. Piensa en hacerse da o. Busque ayuda de inmediatosi alguna vez siente que puede hacerse da o a usted misma o a otros, o tiene pensamientos de poner fin a wilcox bernard. Dir alysia al centro de urgencias m s cercano o: Comun quese con el servicio de emergencias de wilcox localidad (911 en los [place]). Llame a National Suicide Prevention Lifeline (L chelsie Tele danica Nacional para la Prevenci n del Suicidio) al . Est disponible las 24 horas del d a. Env e un mensaje de texto a la l chelsie para casos de crisis al [id number]. Resumen El aborto espont santa es la p rdida de un embarazo antes de la semana 20. A veces, el embarazo termina antes de que la patrica sepa que est embarazada. Siga las instrucciones del m dico respecto de los medicamentos y la actividad. Para que usted y wilcox tiffanie puedan sobrellevar el duelo, hablen con el m dico o con un psi logo. Cumpla con todas las visitas de seguimiento. Esta informaci n no tiene esa fin reemplazar el consejo del m dico. Aseg rese de hacerle al m dico cualquier pregunta que tenga. Document Revised: 03/10/2021 Document Reviewed: 03/10/2021 Elsevier Patient Education 2022 [employer] Follow Up Care 10/22/2023 09:01:00 With:Mango GILMORE Address: [address] [place] [address] Business (1) When: Unknown Comments:Call the office tomorrow for an appointment either Monday or Monday of this week. [facility] Evaluation + Plan note 10-22-2023 Note Date & Type Note Facility 10-22-2023 Evaluation + Plan note Extrac yady from: Title:ED Note Author:Hermelindo Monge MD Date: 4 Missed (O02.1: Miss ed ) Right flank pain (R10.9: Unspecified abdominal pain) Orders: ABO/Rh Amylase Level Basic Metabolic Panel Beta hCG Qual Beta hCG Quantitative C-Reactive Protein CBC w/ Auto Diff Cervical Culture Chlam/GC/Trich,VIKY eGFR Extra Blue Tube Hepatic Function Panel Lipase Level UA With Cult Reflex US 1st Trimester US Transvaginal US Renal Diagnostic Tests Pending * Chlam/GC/Trich,VIKY 10/22/23 [facility] Discharge instructions 09-29-2023 Note Date & Type Note Facility 09-29-2023 Hospital Discharg e instructions Patient Education 09/29/2023 21:42:59 Influenza, Adult Influenza, Adult Influenza, also called the flu, is a viral infection that mainly affects the respiratory tract. This includes the lungs, nose, and throat. The flu spreads easily from person to person (is contagious). It causes common cold symptoms, along with high fever and body aches. What are the causes? This condition is caused by the influenza virus. You can get the virus by: Breathing in droplets that are in the air from an infected person's cough or sneeze. Touching something that has the virus on it (has been contaminated) and then touching your mouth, nose, or eyes. What increases the risk? The following factors may make you more likely to get the flu: Not washing or sanitizing your hands often. Having close contact with many people during cold and flu season. Touching your mouth, eyes, or nose without first washing or sanitizing your hands. Not getting an annual flu shot. You may have a higher risk for the flu, including serious problems, such as a lung infection (pneumonia), if you: Are older than 65. Are . Have a weakened disease-fighting system (immune system). This includes people who have HIV or AIDS, are on chemotherapy, or are taking medicines that reduce (suppress) the immune system. Have a long-term (chronic) illness, such as heart disease, kidney disease, diabetes, or lung disease. Have a liver disorder. Are severely overweight (morbidly obese). Have anemia. Have asthma. What are the signs or symptoms? Symptoms of this condition usually begin suddenly and last 4 14 days. These may include: Fever and chills. Headaches, body aches, or muscle aches. Sore throat. Cough. Runny or stuffy (congested) nose. Chest discomfort. Poor appetite. Weakness or fatigue. Dizziness. Nausea or vomiting. How is this diagnosed? This condition may be diagnosed based on: Your symptoms and medical history. A physical exam. Swabbing your nose or throat and testing the fluid for the influenza virus. How is this treated? If the flu is diagnosed early, you can be treated with antiviral medicine that is given by mouth (orally) or through an IV. This can help reduce how severe the illness is and how long it lasts. Taking care of yourself at home can help relieve symptoms. Your health care provider may recommend: Taking umby-dex-kvaytbb medicines. Drinking plenty of fluids. In many cases, the flu goes away on its own. If you have severe symptoms or complications, you may be treated in a hospital. Follow these instructions at home: Activity Rest as needed and get plenty of sleep. Stay home from work or school as told by your health care provider. Unless you are visiting your health care provider, avoid leaving home until your fever has been gone for 24 hours without taking medicine. Eating and drinking Take an oral rehydration solution (ORS). This is a drink that is sold at pharmacies and retail stores. Drink enough fluid to keep your urine pale yellow. Drink clear fluids in small amounts as you are able. Clear fluids include water, ice chips, fruit juice mixed with water, and low-calorie sports drinks. Eat bland, wxxa-qe-esfsms foods in small amounts as you are able. These foods include bananas, applesauce, rice, lean meats, toast, and crackers. Avoid drinking fluids that contain a lot of sugar or caffeine, such as energy drinks, regular sports drinks, and soda. Avoid alcohol. Avoid spicy or fatty foods. General instructions Take mtuh-cor-sozdkxu and prescription medicines only as told by your health care provider. Use a cool mist humidifier to add humidity to the air in your home. This can make it easier to breathe. ?When using a cool mist humidifier, clean it daily. Empty the water and replace it with clean water. Cover your mouth and nose when you cough or sneeze. Wash your hands with soap and water often and for at least 20 seconds, especially after you cough or sneeze. If soap and water are not available, use alcohol-based hand head of measurement & insights. Keep all follow-up visits. This is important. How is this prevented? Get an annual flu shot. This is usually available in late summer, fall, or winter. Ask your health care provider when you should get your flu shot. Avoid contact with people who are sick during cold and flu season. This is generally fall and winter. Contact a health care provider if: You develop new symptoms. You have: ?Chest pain. ?Diarrhea. ?A fever. Your cough gets worse. You produce more mucus. You feel nauseous or you vomit. Get help right away if you: Develop shortness of breath or have difficulty breathing. Have skin or nails that turn a bluish color. Have severe pain or stiffness in your neck. Develop a sudden headache or sudden pain in your face or ear. Cannot eat or drink without vomiting. These symptoms may represent a serious problem that is an emergency. Do not wait to see if the symptoms will go away. Get medical help right away. Call your local emergency services (911 in the [place] Do not drive yourself to the hospital. Summary Influenza, also called the flu, is a viral infection that primarily affects your respiratory tract. Symptoms of the flu usually begin suddenly and last 4 14 days. Getting an annual flu shot is the best way to prevent getting the flu. Stay home from work or school as told by your health care provider. Unless you are visiting your health care provider, avoid leaving home until your fever has been gone for 24 hours without taking medicine. Keep all follow-up visits. This is important. This information is not intended to replace advice given to you by your health care provider. Make sure you discuss any questions you have with your health care provider. Document Revised: 03/26/2021 Document Reviewed: 03/26/2021 [employer] Patient Education 2022 [employer]. Follow Up Care 09/29/2023 19:31:26 With:AKUA MAKI Address: [place] [address] [place] [address]- Business (1) When:10/02/2023 21:31:48 [facility] Evaluation + Plan note 09-29-2023 Note Date & Type Note Facility 09-29-2023 Evaluation + Plan note Extrac yady from: Title:ED Note Author:Yonathan Melchor DO Date :09/29/23 Influenza (J11.1: Influenza due to unidentified influenza virus with other respiratory manifestations) Orders: Influenza A&B Ag Rapid COVID Antigen ([facility]) [facility] Hospital course Narrative Note Date & Type Note Facility Hospital course Narrative No data available for this section [facility] Progress note Note Date & Type Note Facility Progress note No data available for this section [facility] Discharge Instructions * Attachments The following attachments cannot be sent through Care Everywhere. * Headache (Mauritanian) * Fatigue (Mauritanian) documented in this encounter Assessments Diagnosis Nonintractable headache, unspecified chronicity pattern, unspecified headache type General weakness Other malaise and fatigue Advance Directives No Advanced Directives Records FoundDocuments on File Type Date Recorded Patient Guest Service Aide Expl anation ACP-Advance Directive ACP-Power of Certified Bench Jeweler Technician Latest Code Status on File Code Status Date Activated Date Inactivated Comments Full Code 05/10/2016 3:30 PM 05/12/2016 4:50 PM Full Code 05/09/2016 6:21 PM 05/10/2016 3:30 PM Full Code 07/20/2014 9:45 PM 07/22/2014 7:43 PM Full Code 07/20/2014 8:38 PM 07/20/2014 9:45 PM Full Code 07/20/2014 4:15 PM 07/20/2014 8:38 PM Summary Purpose Family History No Family History Records Found No data available for this section No data available for this section No Family History Records Found Additional Source Comments Reason for Visit (unrecogniz ed section and content) Reason Comments Headache has been having head ache since noon INFORMATION SOURCE (unrecogn ized section and content) DATE CREATED AUTHOR 05/06/2020 Darlene morales DATE CREATED AUTHOR AUTHOR'S ORGANIZ ATION 10/25/2023 [facility] FOR RECORDS PERTAINING TO PATIENTS WHO ARE OR HAVE BEEN ENROLLED IN A CHEMICAL DEPENDENCY/SUBSTANCEABUSE PROGRAM, SOME INFORMATION MAY BE OMITTED. This clinical summary was aggregated from multiple sources. Caution should be exercised in using it in the provision of clinical care. This summary normalizes information from multiple sources, and as a consequence, information in this document may materially change the coding, format and clinical context of patient data. In addition, data may be omitted in some cases. CLINICAL DECISIONS SHOULD BE BASED ON THE PRIMARY CLINICAL RECORDS. [email or web address] [facility]. provides no warranty or guarantee of the accuracy or completeness of information in this document.
[2023-10-28] MEDS: ACETAMINOPHEN 500 MG TABLET 1000 MG PO (08:48)
[2023-10-28 08:51] LABS: Basophils Percent Auto 0.2 % (0.2-2.0); Eosinophils Absolute Auto 0.1 10^3/uL (0.0-0.7); Eosinophils Percent Auto 1.5 % (0.9-7.0); Hematocrit 35.3 % (36.0-48.0); Hemoglobin 11.3 g/dL (12.0-16.0); Immature Granulocytes Abs Auto 0.02 10^3/uL (0.00-0.03); Immature Granulocytes Pct Auto 0.2 % (0.0-0.5); Lymphocytes Absolute Auto 2.4 10^3/uL (1.2-3.8); Lymphocytes Percent Auto 27.3 % (20.5-60.0); Mean Corpuscular Hemoglobin 28.4 pg (26.7-34.0); Mean Corpuscular Volume 88.7 fL (81.0-99.0); Mean Platelet Volume 10.4 fL (9.5-13.5); Monocytes Absolute Auto 0.7 10^3/uL (0.3-0.8); Monocytes Percent Auto 7.4 % (1.7-12.0); Neutrophils Absolute Auto 5.5 10^3/uL (1.4-6.5); Neutrophils Percent Auto 63.4 % (43.0-75.0); Platelet Count 264 10^3/uL (150-450); Red Blood Count 3.98 10^6/uL (4.20-5.40); Red Cell Distribution Width 15.6 % (11.0-15.0); White Blood Count 8.7 10^3/uL (4.0-11.0)
[2023-10-28 08:52] LABS: Bilirubin Urine NEGATIVE (NEGATIVE); Blood Urine LARGE (NEGATIVE); Clarity Urine CLEAR (CLEAR); Color Urine YELLOW (YELLOW); Glucose Urine UA NEGATIVE (NEGATIVE); Ketones Urine NEGATIVE (NEGATIVE); Leukocyte Esterase Urine NEGATIVE (NEGATIVE); Nitrite Urine NEGATIVE (NEGATIVE); Protein Urine 30 mg/dL (NEG/TRACE); Specific Gravity Urine 1.025 (1.005-1.025)
[2023-10-28 08:56] LABS: Urine Microscopic Indicated YES
[2023-10-28 09:06] LABS: Bacteria Urine TRACE #/HPF (NONE SEEN); Cast Seen? NONE SEEN #/LPF (NONE SEEN); Crystals Seen? None Seen #/HPF (None Seen); Mucus Urine TRACE (NONE SEEN); Squamous Epithelial Cell Urine FEW #/LPF (NONE/RARE); Urine Culture Indicated NO; WBC Urine 0-2 #/HPF (NONE SEEN)
[2023-10-28 09:07] LABS: Alanine Aminotransferase 16 U/L (14-59); Albumin Globulin Ratio 0.6; Albumin Level 3.1 g/dL (3.4-5.0); Alkaline Phosphatase 80 U/L (46-116); Anion Gap 12.1; Aspartate Amino Transferase 14 U/L (15-37); BUN Creatinine Ratio 12.1; Bilirubin Total 0.4 mg/dL (0.2-1.0); Calcium 8.9 mg/dL (8.5-10.1); Carbon Dioxide 23.7 mmol/L (21.0-32.0); Chloride 103 mmol/L (98-107); Estimated GFR (African America >60 (>=60); Estimated GFR (Non-African Ame >60 (>=60); Globulin 4.8 g/dL; Glucose 100 mg/dL (74-106); Potassium 3.8 mmol/L (3.5-5.1); Sodium 135 mmol/L (136-145); Total Protein 7.9 g/dL (6.4-8.2)
[2023-10-28] MEDS: 0.9 % SODIUM CHLORIDE 1,000 ML 125 ML IV (09:08)
[2023-10-28 09:14] LABS: INR 0.96; Partial Thromboplastin Time 29.8 sec (22.3-36.2); Prothrombin Time 10.2 sec (9.0-11.6)
[2023-10-28 09:27] LABS: HCG Quantitative 227715 mIU/mL
--- NOTE | 2023-10-28 11:30 | P.ON_ITS ---
Brief Operative Note Date of procedure: 10/28/23 Pre-op diagnosis: missed Post-op diagnosis: same as pre-op Procedure: NAME OF PROCEDURE: [D&C suction ] PROCEDURE: The patient was taken back to the OR where she was given general anesthesia without difficulty. She was then placed in dorsal lithotomy position, prepped and draped in the normal sterile fashion. A weighted speculum was placed in the patient's vagina and the anterior lip of the cervix was identified and grasped with a single-tooth tenaculum. The patient was then gently dilated using Hegar dilators after we had sounded roughly to 10cm. The suction curette was then tested. The suction curette was then placed in the patient's uterus and products of conception were removed using an 10-Croatian suction curette. ?Excellent hemostasis was noted. The patient tolerated the procedure well. Sponge, lap, and needle counts were correct x 2. All instruments were then removed from the patient's vagina. The patient was taken to the Recovery Room in stable condition. ?? Anesthesia: CLARENCEA Surgeon: Mango Gilmore Estimated blood loss (mL): 50 Pathology: other (products of conception) Condition: stable Disposition: PACU
--- OUTSIDE RECORDS SUMMARY | 2023-10-28 11:44 | XMS_ITS | CCD ---
Author Name Unknown Address [address] [place] [address] Organization [facility] Care Team Providers Care Marketing Community Liaison Name Role Phone Unavailable Primary Care Provider [...] q6hr, # 15 tab(s), Refills(s) 0, Pharmacy: [facility] [address], 154.9, cm, 07/16/21 19:31:00 EST, Height/Length [...] (1 source) Language spoken - finding; Translations: [South African speaking patient] Onset: 05-26-2014 05-26-2014 Unclassified (2 [...] (Unsp spec) Negative Invalid Interpretation Code Negative [facility] Comment on above: Performed By: #### 1 [id number] ####[facility] [address] [place] [address] N. gonorrhoeae rRNA VIKY+probe Ql (Unsp spec) Negative Invalid Interpretation Code Negative [facility] Comment on above: Performed By: #### 1 [id number] ####[address] [address] T. vaginalis rRNA VIKY+probe Ql (Unsp spec) Negative Invalid Interpretation Code Negative [facility] Comment on above: Result Comment: Perf ormed at: =G [facility] [address] [place] [id number] MD Juanpablo Streeter Performed By: #### 1 [id number] ####[place] [address] ABO/Rhon 10-22-2023 ABO/Rh Positive Invalid Interpretation Code [facility] Comment on above: Performed By: #### 2 594588 ####[address] [address] Amylaseon 10-22-2023 Amylase [Catalytic activity/Vol] 54 U/L Normal 25-157 [facility] Comment on above: Performed By: #### 2 327357, 8130590, 8233802, 14751631, 1417024, 04627233, 9619826, 8375880, 3318479 ####[facility] [address] [place] [address] B hCG Qualon 10-22-2023 Beta HCG ( test) Ql Positive Normal [facility] Comment on above: Performed By: #### 2 471919, 3272262, 4361994, 10866106, 6637807, 26792677, 4907010, 9961619, 0414573 ####[place] [address] [place] [address] BLOOD BANKOrdered By: Janie Carter on 10-22-2023 ABO/Rh Interp Positive Invalid Interpretation Code [facility] [place] Subsection BMPon 10-22-2023 Anion gap [Moles/Vol] 12 mmol/L Normal 6-16 [facility] Comment on above: Performed By: #### 2 143707, 1903511, 6502796, 47921779, 1408587, 44163141, 5761752, 8873777, 4656707 ####[facility] [address] [place] [address] Calcium [Mass/Vol] 9.2 mg/dL Normal 8.9-11.1 [facility] Comment on above: Performed By: #### 2 836726, 8263364, 7206504, 24481327, 0490372, 09733558, 1326318, 4216823, 9909808 ####[facility] [address] [place] [address] Chloride [Moles/Vol] 106 mmol/L Normal 101-111 [facility] Comment on above: Performed By: #### 2 475212, 1263261, 9995770, 77698289, 0460082, 12382698, 3135121, 5083926, 7479473 ####[facility] [address] [place] [address] CO2 [Moles/Vol] 22 mmol/L Normal 21-31 [facility] Comment on above: Performed By: #### 2 914111, 7405198, 1310739, 40654605, 8771009, 68888759, 9897421, 7350402, 5291008 ####[facility] [address] [place] [address] Creatinine [Mass/Vol] 0.6 mg/dL Normal 0.5-1.3 [facility] Comment on above: Performed By: #### 2 665168, 5065333, 7921564, 11114628, 6000105, 54776510, 3816058, 3957882, 5572908 ####[facility] [address] [place] [address] Glucose [Mass/Vol] 93 mg/dL Normal 55-199 [facility] Comment on above: Performed By: #### 2 832856, 3031520, 7988628, 12798461, 0083426, 65460196, 3739128, 4104555, 4506695 ####[facility] [address] [place] [address] Potassium [Moles/Vol] 4.3 mmol/L Normal 3.5-5.3 [facility] Comment on above: Performed By: #### 2 219858, 6113458, 3047430, 42712244, 8832315, 29571447, 1362855, 0988372, 2726346 ####[facility] [address] [place] [address] Sodium [Moles/Vol] 136 mmol/L Normal 135-145 [facility] Comment on above: Performed By: #### 2 671650, 8857315, 5550625, 41683636, 9021384, 34430241, 3140620, 6958069, 5964254 ####[facility] [address] [place] [address] Urea nitrogen [Mass/Vol] 8 mg/dL Normal 5-21 [facility] Comment on above: Performed By: #### 2 441662, 6864761, 9942412, 82485282, 6255498, 92743649, 6749913, 7875495, 8099805 ####[facility] [address] [place] [address] Urea nitrogen/Creatinine [Mass ratio] 13 No Units Normal 10-20 [facility] Comment on above: Performed By: #### 2 223209, 5748024, 8331358, 58985246, 8544753, 49554993, 5538015, 6298846, 8377856 ####[facility] [address] [place] [address] BhCG Quanton 10-22-2023 [place] [address] m[IU]/mL High 1-3 F [facility] Comment on above: Result Comment: 'F N ON < 1 - 3' ' 0.2 - 1 WEEK = 5 TO 50' ' 1 - 2 WEEKS = 50 - 500' ' 2 - 3 WEEKS = 100 - 5000' ' 3 - 4 WEEKS = 500 - 70042' ' 4 - 5 WEEKS = 1000 - 86581' ' 5 - 6 WEEKS = 59388 - 482025' ' 6 - 8 WEEKS = 53690 - 148847' ' 8 - 12 WEEKS = 63473 - 421297' Performed By: #### 2 991875, 3573626, 8371335, 58623146, 6673510, 88995460, 0881078, 8793185, 0607737 ####[facility] [address] [place] [address] CBC w/ Auto Diffon 4 Basophils/100 WBC (Bld) 0.5 % Normal 0.0-2.0 [facility] Comment on above: Performed By: #### 2 556796, 2171054, 5679100, 75153091, 9076714, 00633164, 3583980, 3776279, 0615137 ####[facility] [address] [place] [address] Basophils/Leukocytes Auto (Bld) [Pure # fraction] 0.0 E9/L Normal 0.0-0.2 [facility] Comment on above: Performed By: #### 2 678025, 1562815, 6119647, 36307319, 6061905, 42934037, 3869919, 2217625, 2136134 ####[facility] [address] [place] [address] Eosinophils (Bld) [#/Vol] 0.1 E9/L Normal 0.0-0.5 [facility] Comment on above: Performed By: #### 2 878638, 8393016, 0661964, 30225517, 2529976, 47729858, 6237159, 4234232, 1412736 ####[facility] [address] [place] [address] Eosinophils/100 WBC (Bld) 1.2 % Normal 0.0-8.0 [facility] Comment on above: Performed By: #### 2 744074, 4429717, 6089251, 05780322, 3849465, 28637452, 1371166, 3007746, 6642399 ####[address] [address] Erythrocyte distribution width (RBC) [Ratio] 16.4 % High 10.9-14.2 [facility] Comment on above: Performed By: #### 2 107539, 4414042, 5835785, 50546691, 4926637, 89384344, 2791019, 2952543, 4508038 ####[address] [address] Hematocrit (Bld) [Volume fraction] 33.6 % Low 34.0-46.0 [facility] Comment on above: Performed By: #### 2 280666, 5343782, 4896681, 49767272, 9633224, 08958135, 7566678, 4983542, 2066664 ####[address] [address] Hemoglobin (Bld) [Mass/Vol] 11.1 g/dL Low 12.0-16.0 [facility] Comment on above: Performed By: #### 2 247478, 6964381, 5777820, 82455451, 5065799, 40020716, 0105893, 8073823, 2938114 ####[address] [address] Lymphocytes (Bld) [#/Vol] 1.8 E9/L Normal 1.0-4.0 [facility] Comment on above: Performed By: #### 2 857998, 3589195, 3095723, 79458691, 9454161, 51382283, 6534203, 6267210, 7140578 ####[address] [address] Lymphocytes/100 WBC (Bld) 26.3 % Normal 14.0-50.0 [facility] Comment on above: Performed By: #### 2 296664, 5458744, 5478187, 15355985, 7561668, 28464429, 9013537, 9770076, 6471962 ####[address] [address] MCH (RBC) [Entitic mass] 28.3 pg Normal 27.0-34.0 [facility] Comment on above: Performed By: #### 2 729325, 0857950, 4255524, 32219059, 7489320, 66025686, 5363556, 6425060, 4360636 ####[address] [address] MCHC (RBC) [Mass/Vol] 33.1 g/dL Normal 31.4-36.0 [facility] Comment on above: Performed By: #### 2 560953, 1982416, 5111085, 56004925, 4228457, 69268713, 4764708, 6177926, 8858945 ####[address] [address] MCV (RBC) [Entitic vol] 85.7 fL Normal 80.0-100.0 [facility] Comment on above: Performed By: #### 2 695866, 0072543, 8299744, 96376500, 9914648, 11049592, 3782083, 4884054, 9088680 ####[address] [address] Monocytes (Bld) [#/Vol] 0.5 E9/L Normal 0.2-1.0 [facility] Comment on above: Performed By: #### 2 554909, 8319475, 0607773, 13725405, 2158209, 20960989, 0022814, 5073568, 1722435 ####[address] [address] Neutrophils (Bld) [#/Vol] 4.4 E9/L Normal 2.0-7.5 [facility] Comment on above: Performed By: #### 2 715150, 6341249, 5265341, 47118568, 2162946, 93790002, 3359510, 6209256, 7259515 ####[place] [address] [place] [address] Neutrophils/100 WBC (Bld) 64.6 % Normal 36.0-75.0 [facility] Comment on above: Performed By: #### 2 062635, 8450057, 1065658, 47372911, 1880684, 09811733, 3008150, 7470967, 3340715 ####[address] [address] Platelet mean volume (Bld) [Entitic vol] 8.6 fL Normal 6.4-10.8 [facility] Comment on above: Performed By: #### 2 167402, 9096610, 5244230, 87747587, 2647825, 30339610, 8706139, 3735128, 3058778 ####[address] [address] Platelets (Bld) [#/Vol] 313.0 E9/L Normal 150.0-500.0 [facility] Comment on above: Performed By: #### 2 526394, 4063593, 9859468, 74688628, 5517458, 13654499, 4150601, 0106054, 5264211 ####[address] [address] RBC (Bld) [#/Vol] 3.9 E12/L Low 4.3-5.9 [facility] Comment on above: Performed By: #### 2 578560, 2049783, 3900618, 27440297, 9760490, 64564101, 7816833, 9671160, 0542861 ####[place] [address] [place] [address] WBC corrected for nucl RBC Auto (Bld) [#/Vol] 6.8 E9/L Normal 4.0-11.0 [facility] Comment on above: Performed By: #### 2 045131, 3094474, 3252694, 05245838, 8099224, 10008002, 6943710, 2648289, 0673936 ####[facility] [address] [place] [address] CHEMISTRYOrdered By: SYSTEM SYSTEM on 10-22-2023 Albumin [...] 199 mg/[place] [address] m[IU]/mL High 1 - 3 mIU/mL [facility] Comment on above: Result Comment: 'F N ON < 1 - 3' ' 0.2 - 1 WEEK = 5 TO 50' ' 1 - 2 WEEKS = 50 - 500' ' 2 - 3 WEEKS = 100 - 5000' ' 3 - 4 WEEKS = 500 - 74208' ' 4 - 5 WEEKS = 1000 - 46005' ' 5 - 6 WEEKS = 65907 - 773634' ' 6 - 8 WEEKS = 69412 - 448852' ' 8 - 12 WEEKS = 47818 - 130892' Lipase [Catalytic activity/Vol] 10 U/L Low 13 [...] 10-22-2023 CRP [Mass/Vol] 1.7 mg/dL Normal <=1.9 [facility] Comment on above: Performed By: #### 2 463109, 9639385, 5129028, 64210247, 2333129, 76716157, 6834807, 8536279, 1630414 ####[facility] [address] [place] [address] Consent for Treatmenton Consent for Treatment [id number] 54#1.00TIFF Normal [facility] Discharge Instructionson Discharge Instructions [id number] 675#1.00TIFF Normal [facility] ED Clinical Summaryon 2023 ED Clinical Summary [address] [address] ED Clinical Summary Person Information Name: MARY RODRIGUEZ [place] Age: 38 Years : 1985 Sex: Female Language: British PCP: NONE, XXXX Marital Status: Single Visit [...] 16:09:51 10/22/2023 16:09:51 ADDRESS: [address] [place] [place] [id number] PHYS DOC NOTES: MEDICAL INFORMATION: Prescriptions Given: Medications to Continue with No Changes Other Medications ibuprofen (ibuprofen 600 mg Tab) 1 Tablets By Mouth every 6 hours. Refills: 0. multivitamin, ( Multivitamins) 1 Tablets By Mouth every day. PATIENT EDUCATION INFORMATION: Instructions: Miscarriage, Dhbs-rn-Ofup(Spanis h) Follow up: With: Address: When: [facility], [address] [place] [address] [place] [address] Business (1) Comments: Call the office tomorrow for an appointment either Monday or Monday of this week. DIAGNOSIS: Missed ; Right flank pain Normal [facility] ED Note-Physicianon 10-22-19 ED Note-Physician Basic [...] We will discussed the case with our SENIOR AUDITOR on-call, Dr. Gilmore. He does want to [...] Follow-up With When Contact Information Mango GARRIDOO [address] [place] [address]- Business (1) Additional Instructions: Call the office tomorrow for an appointment either Monday or Monday of this week. Patient Education Miscarriage, Yzei-ym-Rgkr Problem List/Past Medical History Ongoing Encounter for [...] than 100 (more content not included)... Normal [facility] Comment on above: Result Comment: Elec [...] la parte baja de la espalda. ? [place] de l?quido o tejido por la vagina. [...] seguimiento. D?nde buscar m?s informaci?n ? [employer] ([employer] [...] de crisis (more content not included)... Normal [facility] ED Patient Summaryon 024 ED Patient Summary [address] [address] Patient Discharge Instructions Person Information Name: MARY RODRIGUEZ Age: 38 Years Arrival Date: 10/22/2023 08:59:28 Discharge Diagnosis: Missed ; Right flank pain Primary Care Physician: NONE, XXXX Provider Information Primary Provider: Hermelindo Monge MD Advanced Yard Inspector:None The exam and treatment you received in the Emergency Department were for an urgent problem and are not intended as complete care. It is important that you follow up with a doctor, nurse practitioner, or physician?s assistant general manager for ongoing care. If your symptoms become worse or you do not improve as expected and you are unable to reach your usual health care provider, you should return to the Emergency Department. We are available 24 hours a day. MARY RODRIGUEZ has been given the following list of patient education materials, prescriptions and follow-up instructions: Follow-up Instructions: With: Address: When: Mango GILMORE Pending Sale To [facility], [address] [place] [address] [place] [address] Business (1) Comments: Call the office tomorrow for an appointment either Monday or Monday of this week. In the event that this physician does not participate in your insurance network, please consult with your insurance company to find a nearby participating provider. Patient Education Materials: Miscarriage, Nhmk-in-Mzix(Spanis h) A MESSAGE TO ALL PATIENTS REGARDING OPIOIDS PRESCRIPTION OPIOIDS: WHAT YOU NEED TO KNOW Prescription opioids can be used to help relieve lumbeqvz-us-wimlrn pain and are often prescribed following a [...] health car (more content not included)... Normal [facility] HEMATOLOGYOrdered By: SYSTEM SYSTEM on 10-22-2023 [...] 10-22-2023 Albumin [Mass/Vol] 3.6 g/dL Normal 3.3-5.0 [facility] Comment on above: Performed By: #### 2 544074, 4015496, 6439444, 61840337, 4882410, 45421109, 5703482, 4578830, 3227653 ####[facility] [address] [place] [address] Albumin/Globulin (S) [Mass conc ratio] 1.0 Low 1.1-2.2 [facility] Comment on above: Performed By: #### 2 575109, 7346534, 9386868, 75006495, 1319868, 66950439, 6822867, 1639220, 2700415 ####[facility] [address] [place] [address] ALP [Catalytic activity/Vol] 70 Int._Unit/L Normal 21-98 [facility] Comment on above: Performed By: #### 2 281182, 8956072, 6494211, 51251225, 4794084, 10806230, 0448108, 3518663, 0595166 ####[place] [place] [address] ALT No additional P-5'-P [Catalytic activity/Vol] 8 Int._Unit/L Normal 6-46 [facility] Comment on above: Performed By: #### 2 495141, 5623094, 5919645, 85957345, 1607125, 79912281, 1575235, 4973060, 9746932 ####[place] [address] [place] 6630457 AST [Catalytic activity/Vol] 10 Int._Unit/L Normal 5-43 [facility] Comment on above: Performed By: #### 2 733413, 3677100, 3475995, 76862777, 7044649, 54489522, 8189389, 2336345, 4107130 ####[place] [address]757 Bilirubin [Mass/Vol] 0.3 mg/dL Normal 0.0-1.1 [facility] Comment on above: Performed By: #### 2 036595, 2368391, 7723619, 56311012, 9348021, 05004860, 0679036, 0862769, 8420151 ####[place] [address]757 Bilirubin.direct [Mass/Vol] 0.0 mg/dL Normal 0.0-0.4 [facility] Comment on above: Performed By: #### 2 768054, 0847022, 7662915, 85985434, 6852860, 48262349, 3266149, 8892942, 5150128 ####[address] [address] Bilirubin.indirect [Mass or moles/Vol] 0.3 mg/dL Normal 0.1-0.9 [facility] Comment on above: Performed By: #### 2 551989, 4660649, 6847005, 78465684, 3311553, 14948728, 6463820, 1039900, 1464344 ####[address] [place] [address] Globulin (S) [Mass/Vol] 3.5 g/dL Normal 1.4-4.0 [facility] Comment on above: Performed By: #### 2 927397, 6052264, 3543388, 59590487, 7372351, 29479073, 7799075, 7793855, 9370038 ####[facility] [address] [place] [address] Protein [Mass/Vol] 7.1 g/dL Normal 6.0-7.8 [facility] Comment on above: Performed By: #### 2 166495, 1267672, 7782626, 70179537, 0836524, 78549713, 0830822, 2454081, 2367735 ####[address] [address] Lipase Levelon 10-22-2023 Lipase [Catalytic activity/Vol] 10 U/L Low 13-58 [facility] Comment on above: Performed By: #### 2 270641, 3139649, 7256808, 32814359, 5897183, 16592978, 5742840, 8828912, 2793125 ####[address] [address] No Panel InformationOrdered By: Katie Salguero on 10-22-2023 WP No Trichomonas observed. No clue cells present [facility] SEROLOGYOrdered By: Victoria Lechuga on 10-22-2023 Beta HCG ( test) Ql Positive (10/22/23 10:02 AM) Normal [facility] Man Sero UA With Cult Reflexon 2023 Bacteria LM Ql (Urine sed) TRACE Normal Trace [facility] Comment on above: Performed By: #### 1 0062042 ####[facility] [address] [place] [address] Bilirubin Ql (U) Negative Normal Negative [facility] Comment on above: Performed By: #### 1 1782599 ####[facility] [address] [place] [address] Clarity (U) SL CLOUDY Invalid Interpretation Code [facility] Comment on above: Performed By: #### 1 1166480 ####[facility] [address] [place] [address] Color (U) YELLOW Normal Yellow [facility] Comment on above: Performed By: #### 1 8840192 ####[facility] [address] [place] [address] Epithelial cells.squamous LM.HPF (Urine sed) [#/Area] /[HPF] Normal 0-2 [facility] Comment on above: Performed By: #### 1 1980993 ####[address] [address] Glucose Test strip (U) [Mass/Vol] Negative Normal Negative [facility] Comment on above: Performed By: #### 1 5922172 ####[address] [address] Hemoglobin Ql (U) 2+ Abnormal Negative [facility] Comment on above: Performed By: #### 1 6846283 ####[facility] [address] [place] [address] Ketones (U) [Mass/Vol] Negative Normal Negative [facility] Comment on above: Performed By: #### 1 4018293 ####[place] [address] [place] [address] South [place].plasma/[place] .RBC (Bld) [Mass ratio] 4-20 Normal 0-3 [facility] Comment on above: Performed By: #### 1 9632597 ####[facility] [address] [place] [address] Mucus Ql (Urine sed) 1+ Normal [facility] Comment on above: Performed By: #### 1 9090426 ####[facility] [address] [place] [address] Nitrite Ql (U) Negative Normal Negative [facility] Comment on above: Performed By: #### 1 2378778 ####[facility] [address] [place] 66[address]457 pH (U) 7.5 [pH] Invalid Interpretation Code 5.0-9.0 [facility] Comment on above: Performed By: #### 1 3312135 ####[place] [address]757 Protein (U) [Mass/Vol] Negative Normal Negative [facility] Comment on above: Performed By: #### 1 8517185 ####[place] [address] Specific gravity (U) [Rel density] 1.020 Invalid Interpretation Code 1.005-1.030 [facility] Comment on above: Performed By: #### 1 5989221 ####[place] [address] Type of Urine collection method Clean Catch Normal [facility] Comment on above: Performed By: #### 1 0477224 ####[place] [address]757 Urobilinogen Qn (U) 0.2 {Leslye'U}/dL Normal 0.0-1.0 [facility] Comment on above: Performed By: #### 1 2822874 ####[place] [address]757 WBC Auto Ql (U) TRACE Abnormal Negative [facility] Comment on above: Performed By: #### 1 4620994 ####[place] [address]757 WBC LM.HPF (Urine sed) [#/Area] 0-5 Normal 0-5 [facility] Comment on above: Performed By: #### 1 3800523 ####[place] [address] URINALYSISOrdered By: Cynthia Lechuga on 10-22-2023 Bacteria LM Ql (Urine sed) Trace /HPF Normal Trace/HPF [facility] UA Auto SS Bilirubin Ql (U) Negative (10/22/23 11:15 AM) Normal Negative [facility] UA Auto SS Clarity (U) SL CLOUDY [...] AM) Normal Negative [facility] UA Auto SS [place].plasma/[place] .RBC (Bld) [Mass ratio] 4-20 /HPF Normal [...] [facility] UA Auto SS Urobilinogen Qn (U) 0.8241436 {Leslye'U}/dL Normal 0.0 - 1.0 EU/dL [facility] UA Auto SS WBC Auto Ql (U) Trace *ABN* (10/22/23 11:15 AM) Invalid Interpretation Code Negative [facility] UA Auto SS WBC LM.HPF (Urine sed) [#/Area] 0-5 /HPF Normal 0-5/HPF [facility] UA Auto SS US 1st Trimesteron 10-22-2023 US 1st Trimester Exam Date/Time: 10/22/2023 15:07 EST Reason for Exam: Threatened Miscarriage;Other (please specify) Report [facility] [phone] IMPRESSION: Irregularly shaped gestational sac, with no [...] Transabdominal Ultrasound Performed Transvaginal Ultrasound Performed Normal [facility] US Transvaginalon 10-22-2023 US Transvaginal Exam Date/Time: 10/22/2023 15:04 EST Reason for Exam: vaginal bleeding Report [facility] [phone] Please review ultrasound , for report of ultrasound transvaginal. Ordering Provider: Hermelindo Monge FINAL REPORT Dictated: 10/22/2023 3:39 pm Bryce Aguirre MD Signed (Electronic Signature): 10/22/2023 3:39 pm Signed by: Bryce Aguirre MD Transcribed by: FACUNDO Technologist: BLAINE Normal [facility] US Renalon 10-22-2023 US Renal Exam Date/Time: 10/22/2023 15:03 EST Reason for Exam: Hematuria Report [facility] [phone] IMPRESSION: NEGATIVE ULTRASOUND OF THE KIDNEYS. CLINICAL [...] MD Transcribed by: FACUNDO Technologist: BLAINE Garcia [facility] eGFRon 10-22-2023 eGFR 116 mL/min/1.73 m2 Normal >=59 [facility] Comment on above: Order Comment: Order added by Discern Expert. Performed By: #### 2 355165, 8196208, 4511302, 75063231, 1996689, 56306524, 5012159, 7621329, 1198674 ####[facility] [address] [place] [address] Consent for Treatmenton Consent for Treatment [id number] 26#1.00TIFF Normal [facility] Discharge Instructionson Discharge Instructions [id number] 282#1.00TIFF Normal [facility] ED Clinical Summaryon 2023 ED Clinical Summary [address] [address] ED Clinical Summary Person Information Name: MARY RODRIGUEZ Debra/[facility] Age: 38 Years : 1985 Sex: Female Language: British PCP: NONE, XXXX Marital Status: Single Visit [...] 09/29/2023 21:42:59 09/29/2023 21:42:59 ADDRESS: [address] [facility] [id number] PHYS DOC NOTES: MEDICAL INFORMATION: Prescriptions Given: Medications to Continue with No Changes Other Medications ibuprofen (ibuprofen 600 mg Tab) 1 Tablets By Mouth every 6 hours. Refills: 0. multivitamin, ( Multivitamins) 1 Tablets By Mouth every day. PATIENT EDUCATION INFORMATION: Instructions: Influenza, Adult Follow up: With: Address: When: [facility], [address] [place] [address] [place], [place] [address] Business (1) In 3 days 10/02/2023 DIAGNOSIS: Influenza Normal [facility] ED Note-Physicianon 09-29-19 ED Note-Physician Basic [...] and Complexity of Problems Differential Diagnosis: [] [facility] Data External documents reviewed: N/A My EKG [...] Orders: Influenza A&B Ag Rapid COVID Antigen ([facility] Disposition Plan Discharge Prescription List Prescriptions No active prescription medications Follow-up With When Contact Information AKUA MAKI In 3 days 10/02/[address], [place] [address] [facility] (1) Additional Instructions: Patient Education Influenza, Adult [...] Results No qualifying data available. Normal [facility] [facility] Comment on above: Result Comment: Elec [...] health care provider may recommend: ? Taking gylo-mbv-iasycpi medicines. ? Drinking plenty of fluids. In [...] and low-calorie sports drinks. ? Eat bland, msok-or-wyyjzr foods in small amounts as you are able. These foods include bananas, applesauce, rice, lean meats, toast, and crackers. ? Avoid drinking fluids that contain a lot of sugar or caffeine, such as energy drinks, regular sports drinks, and soda. ? Avoid alcohol. ? Avoid spicy or fatty foods. General instructions ? Take rqpj-upo-xdydwop and prescription medicines only as told by [...] water are not available, use alcohol-based hand supervisor powder and primer canning. ? Keep all follow-up visits. This is [...] ? Deve (more content not included)... Normal [facility] ED Patient Summaryon 024 ED Patient Summary [place] [address] Patient Discharge Instructions Person Information Name: RODRIGUEZ MARY Cabrera Age: 38 Years Arrival Date: 09/29/2023 19:29:13 Discharge Diagnosis: Influenza Primary Care Physician: NONE, XXXX Provider Information Primary Provider: Yonathan Melchor DO Advanced Yard Inspector:None The exam and treatment you received in the Emergency Department were for an urgent problem and are not intended as complete care. It is important that you follow up with a doctor, nurse practitioner, or physician?s assistant general manager for ongoing care. If your symptoms become worse or you do not improve as expected and you are unable to reach your usual health care provider, you should return to the Emergency Department. We are available 24 hours a day. MARY RODRIGUEZ has been given the following list of patient education materials, prescriptions and follow-up instructions: Follow-up Instructions: With: Address: When: [facility], [address] [place] [address] Business (1) In 3 days 10/02/2023 In the event that this physician does not participate in your insurance network, please consult with your insurance company to find a nearby participating provider. Patient Education Materials: Influenza, Adult A MESSAGE TO ALL PATIENTS REGARDING OPIOIDS PRESCRIPTION OPIOIDS: WHAT YOU NEED TO KNOW Prescription opioids can be used to help relieve wquytuuy-iz-tvmbqo pain and are often prescribed following a [...] be struggling with addiction, tell your health senior caregiver and ask for guidance or call [facility] National Helpline at 4-956-711-QUHN. t Source: Department of (more content not included)... Normal [facility] Influenza A&B Agon 4 Influenzae A Ag Negative Normal Negative [facility] Comment on above: Performed By: #### 1 [id number] ####[facility] [address] [place] [address] Influenzae B Ag Positive Abnormal Negative [facility] Comment on above: Result Comment: Test sensitivity and specificity vary for age group, specimen type, antigen types, and prevalence of disease. Test results must be evaluated in conjunction with other clinical data available to the physician. Individuals who received nasally administered Influenza A vaccine may have positive test results up to 3 days after vaccination. Performed By: #### 1 [id number], [id number] ####[facility] [address] [place] [address] MICRO OTHER TESTSOrdered By: Yang Ascencio on 09-29-2023 Influenzae A Ag Negative (09/29/23 8:10 PM) Normal Negative [facility] Influenzae B Ag Positive 1 *ABN* (09/29/23 8:10 PM) Invalid Interpretation Code Negative [facility] Comment on above: Interpretive Data: T [...] NEG Ctl Pass (09/29/23 8:10 PM) Normal [facility] Rapid COV Int POS Ctl Pass (09/29/23 8:10 PM) Normal [facility] SARS-CoV+SARS-CoV-2 (COVID-19) Ag IA.rapid Ql (Resp) Not Detected 2 (09/29/23 8:10 PM) Normal Not Detected [facility] Comment on above: Interpretive Data: T he [employer] System for Rapid Detection of SARS-CoV-2 [...] other viruses or pathogens; and, in the [facility], this test is only authorized for the duration of the declaration that circumstances exist justifying the authorization of emergency use of in vitro diagnostics for detection and/or diagnosis of the virus that causes COVID-19 under Section 564(b)(1) of the Act, 21 U.S.C. 360bbb-3(b)(1), unless the authorization is terminated or revoked sooner. Prescriptions/Work Noteson 0 09-29-2023 Prescriptions/Work Notes [id number]#[id number] Normal [facility] Rapid COVID Antigen ([facility])on 09-29-2023 Rapid COV Int NEG Ctl Pass Normal [facility] Comment on above: Performed By: #### 1 [id number], [id number] ####[address] [place] [address] Rapid COV Int POS Ctl Pass Normal [facility] Comment on above: Performed By: #### 1 [id number], [id number] ####[address] [address] SARS-CoV+SARS-CoV-2 (COVID-19) Ag IA.rapid Ql (Resp) Not detected Normal Not Detected [facility] Comment on above: Result Comment: The [employer] System for Rapid Detection of SARS-CoV-2 is [...] For in vitro diagnostic use. In the [facility], only for use under an Emergency [...] or revoked sooner. Performed By: #### 1 [id number], [id number] ####[facility] [address] [place] [address] Basic Metab w/rfx MGon 05-05 Potassium [Moles/Vol] 3.2 mmol/L Low 3.7-5.3 [facility] Comment on above: Performed By: #### C DP BMPX, MG #### [facility] [address] [place], [place] [id number] Campus Recruiter: Monico Siddiqui MD (cont.) [facility] Comment on above: Result Comment: Aver age GFR for 30-39 years old: 107 mL/min/1.73sq m Chronic Kidney Disease: <60 mL/min/1.73sq m Kidney failure: <15 mL/min/1.73sq m eGFR calculated using average adult body mass. Additional eGFR calculator available at: http://www.[employer].Next[employer]/multiple_crcl_2012.htm Performed By: #### C DP BMPX, MG #### [facility] [address] [place] [address] Campus Recruiter: Monico Siddiqui MD Anion gap [Moles/Vol] 11 mmol/L Normal 9-17 [facility] Comment on above: Performed By: #### C DP, BMPX, MG #### [facility] [address] [place], [place] [id number] Campus Recruiter: Monico Siddiqui MD BUN/CRE Ratio 10 Normal 9-20 [facility] Comment on above: Performed By: #### C DP, BMPX, MG #### [facility] [address] [place] [address] Campus Recruiter: Monico Siddiqui MD Calcium [Mass/Vol] 9.6 mg/dL Normal 8.6-10.4 [facility] Comment on above: Performed By: #### C DP, BMPX, MG #### [facility] [address] [place] [address] Campus Recruiter: Monico Siddiqui MD Chloride [Moles/Vol] 102 mmol/L Normal 98-107 [facility] Comment on above: Performed By: #### C DP, BMPX, MG #### [facility] [address] [place] [address] Campus Recruiter: Monico Siddiqui MD CO2 [Moles/Vol] 24 mmol/L Normal 20-31 [facility] Comment on above: Performed By: #### C DP, BMPX, MG #### [facility] [address] [place], [place] [id number] Campus Recruiter: Monico Siddiqui MD Creatinine [Mass/Vol] 0.61 mg/dL Normal 0.50-0.90 [facility] Comment on above: Performed By: #### C DP, BMPX, MG #### [facility] [address] [place], [place] [id number] Campus Recruiter: Monico Siddiqui MD GFR, Amer >60 Normal >60 [place] Comment on above: Performed By: #### C DP, BMPX, MG #### [facility] [address] [place], [place] [id number] Campus Recruiter: Monico Siddiqui MD GFR,non Amer >60 Normal >60 [facility] Comment on above: Performed By: #### C DP, BMPX, MG #### [facility] [address] [place], [place] [id number] Campus Recruiter: Monico Siddiqui MD Glucose [Mass/Vol] 132 mg/dL High 70-99 [facility] Comment on above: Performed By: #### C DP, BMPX, MG #### [facility] [address] [place], [place] [id number] Campus Recruiter: Monico Siddiqui MD Sodium [Moles/Vol] 137 mmol/L Normal 135-144 [facility] Comment on above: Performed By: #### C DP, BMPX, MG #### [facility] [address] [place] [address] Campus Recruiter: Monico Siddiqui MD Urea nitrogen [Mass/Vol] 6 mg/dL Normal 6-20 [facility] Comment on above: Performed By: #### C DP, BMPX, MG #### [facility] [address] [place], [place] [id number] Campus Recruiter: Monico Siddiqui MD Staging: NOT REPORTED Normal [facility] Comment on above: Performed By: #### C DP, BMPX, MG #### [facility] [address] [place], [place] [id number] Campus Recruiter: Monico Siddiqui MD Basic Metabolic Panel w/ Ref hattie to MGon 05-05-2020 Anion gap [Moles/Vol] 11 mmol/L 9 - 17 mmol/L [facility], [place] Bun/Cre Ratio 10 [place], [place] Calcium [Mass/Vol] 9.6 mg/dL 8.6 - 10. 4 mg/dL [place] Chloride [Moles/Vol] 102 mmol/L 98 - 10 7 mmol/L [place] CO2 [Moles/Vol] 24 mmol/L 20 - 31 mmol/L [place] Creatinine [Mass/Vol] 0.61 mg/dL 0.5 - 0.9 mg/dL [place] GFR >60 >60 mL/min [place] GFR Non- >60 >60 mL/min [place] GFR/1.73 sq M predicted among non-blacks MDRD (S/P/Bld) [Vol rate/Area] [place] Comment on above: Average GFR for 30-3 9 years old: 107 mL/min/1.73sq m Chronic Kidney Disease: <60 mL/min/1.73sq m Kidney failure: <15 mL/min/1.73sq m eGFR calculated using average adult body mass. Additional eGFR calculator available at: http://www.[employer]/multiple_crcl_2012.htm GFR/1.73 sq M predicted among non-blacks MDRD (S/P/Bld) [Vol rate/Area] NOT REPORTED [place] Glucose [Mass/Vol] 132 mg/dL High 70 - 99 mg/dL [place], [place] Interpretation and review of laboratory results Abnormal [place] Potassium [Moles/Vol] 3.2 mmol/L Low 3.7 - 5.3 mmol/L [place] Sodium [Moles/Vol] 137 mmol/L 135 - 144 mmol/L [place] Urea nitrogen [Mass/Vol] 6 mg/dL 6 - 20 mg/dL [place] CBC Auto Differentialon 04-21 Basophils (Bld) [#/Vol] 0.00 10*3/uL [place] Basophils/100 WBC (Bld) 0 % 0 - 2 % [place] Differential Type YES [place] Eosinophils (Bld) [#/Vol] 0.10 10*3/uL [place] Eosinophils/100 WBC (Bld) 0 % 0 - 5 % [place] Erythrocyte distribution width (RBC) [Ratio] 14.7 % 12.1 - 15.2 % [place] Hematocrit (Bld) [Volume fraction] 38.6 % 36 - 46 % [place] Hemoglobin (Bld) [Mass/Vol] 13.1 g/dL 12 - 16 g/dL [place] Interpretation and review of laboratory results Abnormal [place] Lymphocytes (Bld) [#/Vol] 3.20 10*3/uL [place] Lymphocytes/100 WBC (Bld) 27 % 15 - 40 % [place] MCH (RBC) [Entitic mass] 29.1 pg 26 - 34 pg [place] MCHC (RBC) [Mass/Vol] 33.9 g/dL 31 - 37 g/dL [place] MCV (RBC) [Entitic vol] 85.9 fL 80 - 100 fL [place] Monocytes (Bld) [#/Vol] 0.80 10*3/uL [place] Monocytes/100 WBC (Bld) 7 % 4 - 8 % [place] Platelet mean volume (Bld) [Entitic vol] NOT REPORTED 6 - 12 fL [place] Platelets (Bld) [#/Vol] NOT REPORTED [place] Platelets (Bld) [#/Vol] 301 10*3/uL [place] RBC (Bld) [#/Vol] 4.49 10*6/uL 4 - 5.2 m/uL [place] RBC morphology finding Nom (Bld) NOT REPORTED [place] Segmented neutrophils/100 WBC (Bld) 66 % 47 - 75 % [place] Segs Absolute 7.50 High [place] WBC (Bld) [#/Vol] NOT REPORTED per 100 WBC [place] WBC (Bld) [#/Vol] 11.5 10*3/uL [place] WBC Morphology NOT REPORTED [place], [place] CBC with Diffon 05-05-2020 Abs. Basophil 0.00 k/uL Normal 0.0-0.2 [facility] Comment on above: Performed By: #### C DP, BMPX, MG #### [facility] [address] [place] [address] Campus Recruiter: Monico Siddiqui MD Abs.Neutrophil (Seg) 7.50 k/uL High 2.5-7.0 [facility] Comment on above: Performed By: #### C DP, BMPX, MG #### [facility] [address] [place] [address] Campus Recruiter: Monico Siddiqui MD Auto Diff Performed YES Normal [facility] Comment on above: Performed By: #### C DP, BMPX, MG #### [facility] [address] [place] [address] Campus Recruiter: Monico Siddiqui MD Basophils/100 WBC (Bld) 0 % Normal 0-2 [facility] Comment on above: Performed By: #### C DP, BMPX, MG #### [facility] [address] [place] [id number] Campus Recruiter: Monico Siddiqui MD Eosinophils (Bld) [#/Vol] 0.10 10*3/uL Normal 0.0-0.4 [facility] Comment on above: Performed By: #### C DP, BMPX, MG #### [facility] [address] [place] [id number] Campus Recruiter: Monico Siddiqui MD Eosinophils/100 WBC (Bld) 0 % Normal 0-5 [facility] Comment on above: Performed By: #### C DP, BMPX, MG #### [facility] [address] [place] [id number] Campus Recruiter: Monico Siddiqui MD Erythrocyte distribution width (RBC) [Ratio] 14.7 % Normal 12.1-15.2 [facility] Comment on above: Performed By: #### C DP, BMPX, MG #### [facility] [address] [place] [address] Campus Recruiter: Monioc Siddiqui MD Hematocrit (Bld) [Volume fraction] 38.6 % Normal 36-46 [facility] Comment on above: Performed By: #### C DP, BMPX, MG #### [facility] [address] [place] [id number] Campus Recruiter: Monico Siddiqui MD Hemoglobin (Bld) [Mass/Vol] 13.1 g/dL Normal 12.0-16.0 [facility] Comment on above: Performed By: #### C DP, BMPX, MG #### [facility] [address] [place] [address] Campus Recruiter: Monico Siddiqui MD Lymphocytes (Bld) [#/Vol] 3.20 10*3/uL Normal 1.0-4.8 [facility] Comment on above: Performed By: #### C DP, BMPX, MG #### [facility] [address] [place] [id number] Campus Recruiter: Monico Siddiqui MD Lymphocytes/100 WBC (Bld) 27 % Normal 15-40 [facility] Comment on above: Performed By: #### C DP, BMPX, MG #### [facility] [address] [place] [address] Campus Recruiter: Monico Siddiqui MD MCH (RBC) [Entitic mass] 29.1 pg Normal 26-34 [facility] Comment on above: Performed By: #### C DP, BMPX, MG #### [facility] [address] [place] [id number] Campus Recruiter: Monico Siddiqui MD MCHC (RBC) [Mass/Vol] 33.9 g/dL Normal 31-37 [facility] Comment on above: Performed By: #### C DP, BMPX, MG #### [facility] [address] [place], [place] [id number] ([phone] Campus Recruiter: Monico Siddiqui MD MCV (RBC) [Entitic vol] 85.9 fL Normal 80-100 [facility] Comment on above: Performed By: #### C DP, BMPX, MG #### [facility] [address] [place] [address] ([phone] Campus Recruiter: Monico Siddiqui MD Monocytes (Bld) [#/Vol] 0.80 10*3/uL Normal 0.0-1.0 [facility] Comment on above: Performed By: #### C DP, BMPX, MG #### [facility] [address] [place] [address] (170) Campus Recruiter: Monico Siddiqui MD Monocytes/100 WBC (Bld) 7 % Normal 4-8 [facility] Comment on above: Performed By: #### C DP, BMPX, MG #### [facility] [address] [place] [address] ([phone] Campus Recruiter: Monico Siddiqui MD Neutrophil (Seg) 66 % Normal 47-75 [place] Comment on above: Performed By: #### C DP, BMPX, MG #### [facility] [address] [place] [address] ([phone] Campus Recruiter: Monico Siddiqui MD Platelets (Bld) [#/Vol] 301 10*3/uL Normal 140-450 [facility] Comment on above: Performed By: #### C DP, BMPX, MG #### [facility] [address] [place] [address] (445) Campus Recruiter: Monico Siddiqui MD RBC (Bld) [#/Vol] 4.49 10*6/uL Normal 4.0-5.2 [facility] Comment on above: Performed By: #### C DP, BMPX, MG #### [facility] [address] [place] [address] Campus Recruiter: Monico Siddiqui MD WBC (Bld) [#/Vol] 11.5 10*3/uL High 3.5-11.0 [facility] Comment on above: Performed By: #### C DP, BMPX, MG #### [facility] [address] [place], [place] [id number] Campus Recruiter: Monico Siddiqui MD Abs.Imm.Granulocyte NOT REPORTED Normal 0.00-0.30 [facility] Comment on above: Performed By: #### C DP, BMPX, MG #### [facility] [address] [place] [address] Campus Recruiter: Monico Siddiqui MD Immature granulocytes (Bld) [#/Vol] NOT REPORTED Normal 0 [facility] Comment on above: Performed By: #### C DP, BMPX, MG #### [facility] [address] [place] [address] Campus Recruiter: Monico Siddiqui MD NRBC Automated NOT REPORTED Normal [place] Comment on above: Performed By: #### C DP, BMPX, MG #### [facility] [address] [place] [id number] Campus Recruiter: Monico Siddiqui MD Platelet mean volume (Bld) [Entitic vol] NOT REPORTED Normal 6.0-12.[address] [facility] Comment on above: Performed By: #### C DP, BMPX, MG #### [facility] [address] [place] [id number] Campus Recruiter: Monico Siddiqui MD Platelets (Bld) [#/Vol] NOT REPORTED Normal [facility] Comment on above: Performed By: #### C DP, BMPX, MG #### [facility] [address] [place], [place] [id number] Campus Recruiter: Monico Siddiqui MD RBC morphology finding Nom (Bld) NOT REPORTED Normal [facility] Comment on above: Performed By: #### C DP, BMPX, MG #### [facility] [address] [place] [address] Campus Recruiter: Monico Siddiqui MD WBC Morphology NOT REPORTED Normal [place] Comment on above: Performed By: #### C DP, BMPX, MG #### [facility] [address] [place] [address] Campus Recruiter: Monico Siddiqui MD Magnesiumon 05-05-2020 Magnesium [Mass/Vol] 1.9 mg/dL Normal 1.6-2.6 [facility] Comment on above: Performed By: #### C DP, BMPX, MG #### [facility] [address] [place] [address] Campus Recruiter: Monico Siddiqui MD Magnesium [Mass/Vol] 1.9 mg/dL 1.6 - 2 .6 mg/dL [place] Otheron 05-05-2020 Immature granulocytes (Bld) [#/Vol] NOT REPORTED [place] SPECIMEN REJECTIONon 020 Ordered Test CDP, BMPX [place], [place] Reason for Rejection Unable to perform testing: Specimen hemolyzed. [place] Specimen source Nom (Unsp spec) BLOOD [place] - NOT REPORTED [place] Specimen Rejectionon 020 Reason for rejection Unable to perform testing: Specimen hemolyzed. Normal [facility] Comment on above: Performed By: #### R EJEC #### [facility] [address] [place] [address] Campus Recruiter: Monico Siddiqui MD Source of sample BLOOD Normal [place] Comment on above: Performed By: #### R EJEC #### [facility] [address] [place] [address] Campus Recruiter: Monico Siddiqui MD Test ordered CDP, BMPX Normal [facility] Comment on above: Performed By: #### R EJEC #### [facility] [address] [place] [address] Campus Recruiter: Monico Siddiqui MD ----- NOT REPORTED Normal [facility] Comment on above: Performed By: #### R EJEC #### [facility] [address] [place] [address] Campus Recruiter: Monico Siddiqui MD Vital Signs Date Time Vital Sign Value Performing Clinician Janei nati 10-22-2023 15:30-0500 Diastolic blood pressure 49 mm[Hg] Hermelindo Saleem [facility] 10-22-2023 15:30-0500 Heart rate 78 /min Hermelindo Saleem [facility] 10-22-2023 15:30-0500 Mean blood pressure 69 mm[Hg] Hermelindo Saleem [facility] 10-22-2023 15:30-0500 Respiratory rate 16 /min Hermelindo Saleem [facility] 10-22-2023 15:30-0500 SaO2% (BldA) [Mass fraction] 99 % Hermelindo Saleem [facility] 10-22-2023 15:30-0500 Systolic blood pressure 110 mm[Hg] Hermelindo Saleem [facility] 10-22-2023 15:00-0500 Heart rate 67 /min Hermelindo Saleem [facility] 10-22-2023 14:30-0500 Diastolic blood pressure 57 mm[Hg] Hermelindo Saleem [facility] 10-22-2023 14:30-0500 Heart rate 81 /min Hermelindo Saleem [facility] 10-22-2023 14:30-0500 Mean blood pressure 80 mm[Hg] Hermelindo Saleem [facility] 10-22-2023 14:30-0500 Respiratory rate 18 /min Hermelindo Monge [facility] 10-22-2023 14:30-0500 SaO2% (BldA) [Mass fraction] 100 % Hermelindo Monge [facility] 10-22-2023 14:30-0500 Systolic blood pressure 125 mm[Hg] Hermelindo Monge [facility] 10-22-2023 14:00-0500 Diastolic blood pressure 56 mm[Hg] Hermelindo Monge [facility] 10-22-2023 14:00-0500 Mean blood pressure 79 mm[Hg] Hermelindo Monge [facility] 10-22-2023 09:04-0500 Body temperature 97.88 [degF] Hermelindo Monge [facility] 10-22-2023 09:04-0500 Heart rate 74 /min Hermelindo Monge [facility] 09-29-2023 21:25-0500 Body temperature 102.2 [degF] Yonathan Jill [facility] 09-29-2023 21:25-0500 Diastolic blood pressure 83 mm[Hg] Yonathan Jill [facility] 09-29-2023 21:25-0500 Heart rate 102 /min Yonathan Jill [facility] 09-29-2023 21:25-0500 Mean blood pressure 106 mm[Hg] Yonathan Jill [facility] 09-29-2023 21:25-0500 Respiratory rate 16 /min Yonathan Jill [facility] 09-29-2023 21:25-0500 SaO2% (BldA) [Mass fraction] 98 % Yonathan Jill [facility] 09-29-2023 21:25-0500 Systolic blood pressure 152 mm[Hg] Yonathan Jill [facility] 09-29-2023 19:51-0500 Body temperature 100.4 [degF] YonathanNetac [facility] 09-29-2023 19:51-0500 Diastolic blood pressure 88 mm[Hg] Yonathan Jill [facility] 09-29-2023 19:51-0500 Heart rate 115 /min [facility]onathanNetac [facility] 09-29-2023 19:51-0500 Respiratory rate 17 /min [facility]onathanNetac [facility] 09-29-2023 19:51-0500 SaO2% (BldA) [Mass fraction] 98 % [facility]onathanNetac [facility] 09-29-2023 19:51-0500 Systolic blood pressure 140 mm[Hg] [facility]onathanNetac [facility] 05-05-2020 18:17-0400 BMI (Body Mass Index) 38.08 kg/m2 [facility], [place] 05-05-2020 18:17-0400 Body Temperature 98.49 [degF] [facility] 05-05-2020 18:17-0400 Body weight 88.45 kg [facility] 05-05-2020 18:17-0400 BP Diastolic 80 mm[Hg] [facility] 05-05-2020 18:17-0400 BP Systolic 141 mm[Hg] [facility] 05-05-2020 18:17-0400 Height 152.4 cm [facility] 05-05-2020 18:17-0400 Pulse (Heart Rate) 81 /min Marlen Colon [facility], [place] 05-05-2020 18:17-0400 Pulse Oximetry 100 % [facility], [place] 05-05-2020 18:17-0400 Respiratory Rate 15 /min Marlen Avila [facility] [place] Encounters Encounter Date Encounter Type Care Provider Facility Start: 10-22-2023 End: 10-22-2023 Emergency department [place] Hermelindo [place] [place]: 10-22-2023 End: 10-22-2023 Emergency department patient visit Hermelindo Monge [facility] Start: 09-29-2023 End: 09-29-2023 Emergency department patient visit Yonathan Melchor [place] [place]: 09-29-2023 End: 09-29-2023 Emergency department patient visit Yonathan Melchor [facility] Start: 05-05-2020 End: 05-05-2020 Emergency department patient visit JANAK Elaine [facility] Start: 05-05-2020 End: 05-05-2020 Emergency department patient visit Marlen Avila Work Phone: [facility] ED Comment on above: Nonintractable heada [...] - Td) DTaP/Tdap/Td vaccine (2 - Td) [place], [place] Start: 04-21-2020 Influenza vaccination Flu vaccine (# 1) [place] Start: 06-27-2019 Screening for malign ant neoplasm of cervix Cervical cancer screen [place], [place] Start: 1984 Varicella vaccine (1 of 2 - 2-dose childhood series) Varicella vaccine (1 of 2 - 2-dose childhood series) [place], [place] Immunizations Immunization Date Immunization Notes Care Provider Nacho stinson 07-18-2021 influenza, seasonal, injectable Yonathan Melchor [facility] Comment on above: Reason for Medicatio n: Prophylaxis 07-18-2021 tetanus toxoid, redu olga diphtheria toxoid, and acellular pertussis vaccine, adsorbed Yontahan Jill [facility] Comment on above: Reason for Medicatio n: Other (see comment) 07-22-2014 influenza virus vacc ine, unspecified formulation [place], [place] 07-22-2014 tetanus toxoid, redu olga diphtheria toxoid, and acellular pertussis vaccine, adsorbed [place], [place] 06-21-2014 pneumococcal polysaccharide vaccine, 23 valent [place], [place] 12-30-2013 tuberculin skin test ; purified protein derivative solution, intradermal [place], [place] 12-08-2011 tetanus toxoid, redu olga diphtheria toxoid, and acellular pertussis vaccine, adsorbed Yonathan Melchor [facility] Comment on above: Reason for Medicatio n: Other (see comment) Result Comment: vacc inne Payers Date Payer Category Payer Unknown [id number] 2023 Unknown [id number] 1985 Unknown [id number] 1985 Unknown [id number] Social History Date Type Detail Facility Start: 05-05-2020 End: 09-08-2020 Tobacco smoking status NHIS Never smoker [facility] Start: 05-05-2020 Tobacco use and exposure Never used [place], [place] Start: 05-05-2020 Alcohol intake Current non-dr sole edge inker machine of alcohol (finding) [place], [place] Sex Assigned At Not on file [place] Exposure to SARS-CoV -2 (event) Not sure [place] Tobacco smoking status Never [facility] Sex Assigned At Female [facility] Functional Status Date Assessment Result Facility 10-22-2023 Functional Status N/A [facility] 09-29-2023 Functional Status N/A [facility] Clinical Note 10-25-2023 Note Date & Type [...] Locations R1: This test was performed at: [facility], [address] [place] [address], [id number] , , [facility] Comment on above: Performed By: #### 1 [id number] ####[facility] [id number] [place] [address] Hospital Discharge instructions 10-22-2023 Note Date & Type Note Facility 10-22-2023 Hospital Discharg e instructions Patient Education 10/22/2023 15:59:41 Miscarriage, Fccr-bf-Chsf([place] African) Aborto espont santa Miscarriage El aborto espont [...] en la parte baja de la [place]pal[place]. [place] de l quido o tejido por la [...] ?Hable con el m dico. ?Vaya al [facility] logo. Cuando est lista, hable con el m dico sobre: ?Las cosas que puede hacer por wilcox spencer. ?C mo puede estar harrison si queda embarazada de nuevo. Cumpla con todas las visitas de seguimiento. D nde buscar carlos louie informaci n The [place] [employer] ([employer] y Ginec logos): acog.org U.S. Department of Health and Human Services, Office on Women s Health (Departamento de Spencer y Servicios Humanos de los [place], Oficina de [place] de la [place]): hrsa.gov/aimcxt-bvwnkt-blrrsb Comun quese con un m dico si: [...] Llame a National Suicide Prevention Lifeline (L chelise Tele danica Nacional para la Prevenci n del Suicidio) al . Est disponible las 24 horas del d a. Env e un mensaje de texto a la l chelsie para casos de crisis al [id number]. Resumen El aborto espont santa es la [...] Document Reviewed: 03/10/2021 Elsevier Patient Education 2022 [employer] Follow Up Care 10/22/2023 09:01:00 With:Mango GILMORE Address: [address] [place] [address] Business (1) When: Unknown Comments:Call the office tomorrow for an appointment either Monday or Monday of this week. [facility] Evaluation + Plan note 10-22-2023 Note Date [...] Renal Diagnostic Tests Pending * Chlam/GC/Trich,VIKY 10/22/23 [facility] Hospital Discharge instructions 09-29-2023 Note Date & [...] Your health care provider may recommend: Taking xiab-ikp-ailcvfv medicines. Drinking plenty of fluids. In many [...] water, and low-calorie sports drinks. Eat bland, enoz-jj-qsfvef foods in small amounts as you are able. These foods include bananas, applesauce, rice, lean meats, toast, and crackers. Avoid drinking fluids that contain a lot of sugar or caffeine, such as energy drinks, regular sports drinks, and soda. Avoid alcohol. Avoid spicy or fatty foods. General instructions Take xdxu-umc-jwrkgme and prescription medicines only as told by [...] water are not available, use alcohol-based hand supervisor powder and primer canning. Keep all follow-up visits. This is important. [...] provider. Document Revised: 03/26/2021 Document Reviewed: 03/26/[address] [employer] Patient Education 2022 [employer]. Follow Up Care 09/29/2023 19:31:26 With:AKUA MAKI Address: [place] [address] [place] [address]- Business (1) When:10/02/2023 21:31:48 [facility] Evaluation + Plan note 09-29-2023 Note Date & Type Note Facility 09-29-2023 Evaluation + Plan note Extrac yady from: Title:ED Note Author:Yonathan Melchor DO Date :09/29/23 Influenza (J11.1: Influenza due to unidentified influenza virus with other respiratory manifestations) Orders: Influenza A&B Ag [place] [place] [facility] Hospital course Narrative Note Date & Type Note Facility Hospital course Narrative No data available for this section [facility] Progress note Note Date & Type Note Facility Progress note No data available for this section [facility] Discharge Instructions * Attachments The following attachments cannot be sent through Care Everywhere. 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 [employer] [facility]. provides no warranty or guarantee of the accuracy or completeness of information in this document.
== END 2023-10-28 12:45 | disposition home or self-care (01) ==
LOC: ER 10:26 → SURGOUT 11:41
PROVIDERS: Emergency Provider Emergency Medicine; Visit Provider Obstetrics & Gynecology
PROC: (CPT 1965; principal; 2023-10-28 11:00)
DX: O02.1 Missed abortion (principal)
CPT/HCPCS: 59820; 36415; 76817; 80053; 81001; 84702; 85025; 85610; 85730; 88305; 99285; 99999; J1094; J2704